=== PATIENT | female | born 1990 | race Caucasian/White ===

== ENCOUNTER → 2017-03-09 | Outpatient (CLI) | payer OTHER ==
[~2017-03-09] MED LIST: AMT25 PO; GABA-112 PO; METH4PAK PO; OMEP20TA PO
[2017-03-09 18:32] LABS: LYME DISEASE AB IGG NEG (NEG); LYME DISEASE AB IGM NEG (NEG)
== END | disposition home or self-care (01) ==
LOC: C.LAB 14:34
PROVIDERS: ATTEND Physician Assistant
DX: M25.50 Pain in unspecified joint (principal)

== ENCOUNTER 2017-03-29 19:04 | Emergency (ER) | payer OTHER ==
[~2017-03-29] VITALS: Ht 162.6 cm; Wt 53.8 kg
[~2017-03-29 19:04] MED LIST changes: -AMT25 PO; -METH4PAK PO; -OMEP20TA PO
[2017-03-29 19:07] VITALS: TEMP 36.6; Ht 162.6 cm; Wt 53.8 kg
[2017-03-29] MEDS ORDERED: SODIUM CHLORIDE 0.9% 1000ML 1,000 ML IV STA ×2 (19:19→20:19)
--- NOTE | 2017-03-29 19:24 | EMERGENCY ROOM VISIT NOTE ---
History Report prepared by Armando: Chuck Garner Under the Supervision of: Dr. Issa Obregon M.D. First contact with patient: 19:10 Chief Complaint: DIZZY Stated Complaint: DIZZY,NAUSEA X 1 WK History of Present Illness The patient is a 27 year old female with a history of migraines who presents to the Emergency Room with complaints of persistent dizziness that started around 6 days ago. She says that she had a migraine 7 days ago, which resolved, but ever since then she has felt confused, almost like she is "drunk" and "can't think". The patient states that she has had persistent dizziness. She adds that she started having nausea as well, and she almost can't drive now. She states that she has been taking her Amitriptyline at night. The patient says that she currently feels dizzy, nauseous, and unable to think. She denies any loss of consciousness, fevers, rashes, headaches, or neck stiffness. The patient also denies any major trauma, falls, or recent camping. She notes that she had a tick bite at the end of last month, and was treated with doxycycline for 10 days. She adds that she has a syrinx in her spinal cord, but that is stable. She follows up with neurology regularly. The patient has had multiple brain MRI' s in the past. Source of History: patient Onset: 6 days ago Position: other (global - dizziness) Timing: other (persistent) Associated Symptoms: + nausea, No LOC, No fevers, No headache, No rash Note: Associated symptoms: Unable to think, confused. Denies neck stiffness. Review of Systems See HPI for pertinent positives & negatives. A total of 10 systems reviewed and were otherwise negative. Past Medical & Surgical Medical Problems: (1) Cervicalgia (2) Hx of wisdom tooth extraction (3) Hydromyelia (4) Migraine (5) Pain In Thoracic Spine (6) Sore throat (7) Sore throat (8) Syrinx of spinal cord Surgical Problems: (1) History of stomach ulcers Family History Cancer Gallbladder disease Heart disease Social History Smoking Status: Never Smoker Alcohol Use: occasionally Drug Use: none Marital Status: single Housing Status: lives with family, lives with significant other Occupation Status: employed Current/Historical Medications Scheduled Methylprednisolone (Medrol Dosepak), 1 PKT PO UD Omeprazole (Omeprazole), 1 TAB PO BID Scheduled PRN Amitriptyline HCl (Amitriptyline HCl), 25 MG PO HS PRN for Sleep Gabapentin (Neurontin), 100 MG PO DAILY PRN for Pain Allergies Coded Allergies: No Known Allergies (Unverified , 03/27/16) Physical Exam Vital Signs Date Time Temp Pulse Resp B/P (MAP) Pulse Ox O2 Delivery O2 Flow Rate FiO2 03/29/17 22:32 81 18 107/66 99 03/29/17 20:55 92 18 105/54 98 Room Air 03/29/17 20:16 87 03/29/17 19:07 36.6 93 16 122/82 98 Room Air Physical Exam GENERAL: Patient is well appearing and in mild distress. HEAD: No acute trauma, normocephalic atraumatic ENT: Mucous membranes moist, no nasal congestion. EYES: Equal/Reactive Bilaterally, No scleral icterus, Normal ROM NECK: No nuchal rigidity, no meningismus, trachea is midline, full ROM LUNGS: No dyspnea. Clear to auscultation and equal bilaterally. No wheeze, no rhonchi. HEART: Regular rate and rhythm. No murmurs, rubs, gallops appreciated. ABDOMEN: Soft, nontender, bowel sounds positive, no masses appreciated, no peritonitis. BACK: No midline tenderness, no CVA tenderness EXTREMITIES: Normal motion all extremities, no cyanosis, no edema. NEUROLOGIC: Awake, Alert, Oriented, no acute motor or sensory deficits, no focal weakness, cranial nerves grossly intact. SKIN: No rash, no jaundice, no diaphoresis. Medical Decision & Procedures Laboratory Results 03/29/17 19:30 Red Blood Count 4.79, Mean Corpuscular Volume 87.9, Mean Corpuscular Hemoglobin 28.2, Mean Corpuscular Hemoglobin Concent 32.1, Mean Platelet Volume 9.5, Neutrophils (%) (Auto) 46.6, Lymphocytes (%) (Auto) 40.9, Monocytes (%) (Auto) 8.0, Eosinophils (%) (Auto) 4.0, Basophils (%) (Auto) 0.3, Neutrophils # (Auto) 4.00, Lymphocytes # (Auto) 3.52, Monocytes # (Auto) 0.69, Eosinophils # (Auto) 0.34, Basophils # (Auto) 0.03 03/29/17 19:30 Test 03/29/17 19:30 White Blood Count 8.60 K/uL (4.8-10.8) Red Blood Count 4.79 M/uL (4.2-5.4) Hemoglobin 13.5 g/dL (12.0-16.0) Hematocrit 42.1 % (37-47) Mean Corpuscular Volume 87.9 fL (80-100) Mean Corpuscular Hemoglobin 28.2 pg (25-34) Mean Corpuscular Hemoglobin Concent 32.1 g/dl (32-36) Platelet Count 334 K/uL (130-400) Mean Platelet Volume 9.5 fL (7.4-10.4) Neutrophils (%) (Auto) 46.6 % Lymphocytes (%) (Auto) 40.9 % Monocytes (%) (Auto) 8.0 % Eosinophils (%) (Auto) 4.0 % Basophils (%) (Auto) 0.3 % Neutrophils # (Auto) 4.00 K/uL (1.4-6.5) Lymphocytes # (Auto) 3.52 K/uL (1.2-3.4) Monocytes # (Auto) 0.69 K/uL (0.11-0.59) Eosinophils # (Auto) 0.34 K/uL (0-0.5) Basophils # (Auto) 0.03 K/uL (0-0.2) RDW Standard Deviation 43.0 fL (36.4-46.3) RDW Coefficient of Variation 13.3 % (11.5-14.5) Immature Granulocyte % (Auto) 0.2 % Immature Granulocyte # (Auto) 0.02 K/uL (0.00-0.02) Anion Gap 5.0 mmol/L (3-11) Est Creatinine Clear Calc Drug Dose 81.6 ml/min Estimated GFR () 104.4 Estimated GFR (Non- 90.0 BUN/Creatinine Ratio 12.8 (10-20) Calcium Level 8.9 mg/dl (8.5-10.1) Magnesium Level 2.3 mg/dl (1.8-2.4) Troponin I < 0.015 ng/ml (0-0.045) Thyroid Stimulating Hormone (TSH) 2.250 uIu/ml (0.300-4.500) Human Chorionic Gonadotropin, Qual NEG (NEG) Lyme Disease IgG Antibody NEG (NEG) Lyme Disease IgM Antibody NEG (NEG) Monoscreen NEG (NEG) Laboratory results as reviewed by me. Medications Administered Medications (Trade) Dose Ordered Sig/Ambika Route Start Time Stop Time Status Last Admin Dose Admin Sodium Chloride 1,000 ml @ 999 mls/hr Q1H1M STAT IV 03/29/17 19:19 03/29/17 20:19 DC 03/29/17 19:34 999 MLS/HR Ketorolac Tromethamine (Toradol Inj) 30 mg NOW STAT IV 03/29/17 19:26 03/29/17 19:27 DC 03/29/17 19:34 30 MG Diphenhydramine HCl (Benadryl Inj) 25 mg NOW STAT IV 03/29/17 19:26 03/29/17 19:27 DC 03/29/17 19:35 25 MG Ondansetron HCl (Zofran Inj) 4 mg NOW STAT IV 03/29/17 19:26 03/29/17 19:27 DC 03/29/17 19:35 4 MG Sodium Chloride 1,000 ml @ 999 mls/hr Q1H1M STAT IV 03/29/17 20:19 03/29/17 21:19 DC 03/29/17 20:19 999 MLS/HR Dexamethasone Sodium Phosphate (Decadron Inj) 10 mg NOW STAT IV 03/29/17 22:10 03/29/17 22:11 DC 03/29/17 22:16 10 MG ECG Indication: nausea Rate (beats per minute): 78 Rhythm: sinus rhythm Findings: other (abnormal P waves, shortened MS) Comparison ECG Date: no prior available ED Course 1913: The patient was evaluated in room C2B. A complete history and physical exam was performed. 1918: Ordered NSS 1000 ml @ 999 mls/hr IV. 1925: Ordered Zofran Inj 4 mg IV, Benadryl Inj 25 mg IV, Toradol Inj 30 mg IV. 2006: I discussed the patient with Dr. Edgar Mayfield cardiology - he says that depending on the severity of the patient's symptoms, she can be monitored for 24 hours, but workup can be completed as an outpatient. 2018: I reevaluated the patient and she says that she still feels very dizzy. 2019: Ordered NSS 1000 ml @ 999 mls/hr IV. 2114: I reevaluated the patient and she is still a little dizzy. 2137: I discussed the patient with Dr. Jacey FERRER neurology. 2209: Ordered Decadron Inj 10 mg IV. 2219: I reevaluated the patient and he is resting. The patient verbally expressed understanding and agreement of the treatment plan. The patient will be discharged. Medical Decision Differential diagnoses include Benign positional vertigo, Dehydration, Hypovolemia, Anemia, Tumor, Infection, Hypoglycemia, Electrolyte abnormalities, Cardiac sources, Intracerebral event, Toxicologic, Neurologic, as well as others were entertained. Medication Reconciliation: I attest that I have personally reviewed the patient 's current medication list. Blood pressure screening: Patient was found to have normal blood pressure on screening and does not require follow-up. 27 yr old female with dizziness and nausea for last week. No significant other symptoms. Started post Migraine one week ago. Already with several MRIs in past with what appears to be similar symptoms. Labs look good (apparently issue in lab with machine thus prolonged stay). EKG with varying from NSR to ectopic atrial pacemaker. Not consistent with her symptoms. Multiple meds given. Reviewed with her neurologist who agreed with trying steroid as outpatient in case this is carryover from other migraine. Reviewed at length symptoms requiring return. PPI as NSAIDs and steroids and notes previous issue with possible gastritis/ulcer. Consults Time Called: 2003 Consulting Physician: Dr. Edgar Mayfield cardiology Returned Call: 2006 I discussed the patient with Dr. Edgar Mayfield cardiology - he says that depending on the severity of the patient's symptoms, she can be monitored for 24 hours, but workup can be completed as an outpatient. Additional Consults: Time Called: 2134 Consulted Physician: Dr. Jacey FERRER neurology Returned Call: 2137 Additional Comments: I discussed the patient with Dr. Jacey FERRER neurology. Impression Primary Impression: Dizziness Additional Impressions: Nausea Ectopic atrial pacemaker Scribe Attestation The scribe's documentation has been prepared under my direction and personally reviewed by me in its entirety. I confirm that the note above accurately reflects all work, treatment, procedures, and medical decision making performed by me. Departure Information Dispostion Home / Self-Care Prescriptions Omeprazole (OMEPRAZOLE) 20 Mg Tab 1 TAB PO BID, #30 TAB 1 Refill Take twice daily for 10 days, then once daily. Prov: Issa Obregon M.D. 03/29/17 Methylprednisolone (MEDROL DOSEPAK) 4 Mg Tom 1 PKT PO UD for 6 Days, #1 PKT Prov: Issa Obregon M.D. 03/29/17 Referrals Cari Lindsey D.O. (PCP) Sean Hernández D.O. Patient Instructions ED Dizziness [facility], [facility] Additional Instructions Please follow up with your neurologist for further evaluation and treatment. Your EKG shows evidence of an ectopic atrial pacemaker. This converts to normal area periodically before switching back. It is felt it is unlikely this is the cause of your symptoms. Return if having tachycardia, palpitations, syncope, chest pain, difficulty breathing or other concerns. You should follow up with a cooper apprentice for further evaluation of this. Problem Qualifiers
[2017-03-29] MEDS ORDERED: KETOROLAC TROMETHAMINE 30 MG/ML VIAL IV STA (19:26)
[2017-03-29] MEDS ORDERED: DiphenhydrAMINE HCL 50 MG/ML VIAL IV STA (19:26)
[2017-03-29] MEDS ORDERED: ONDANSETRON INJ 2 MG/ML 2 ML VIAL IV STA (19:26)
[2017-03-29 19:38] LABS: BASO % 0.3 %; BASO ABS # 0.03 K/uL (0-0.2); COMPLETE YES; HEMATOCRIT 42.1 % (37-47); IG% 0.2 %; LYMPH % 40.9 %; LYMPH ABS # 3.52 K/uL (1.2-3.4); MEAN CELL VOLUME 87.9 fL (80-100); MEAN CORPUSCULAR HEMOGLOBIN 28.2 pg (25-34); MEAN CORPUSCULAR HGB CONC 32.1 g/dl (32-36); MEAN PLATELET VOLUME 9.5 fL (7.4-10.4); NEUT % 46.6 %; PLATELET COUNT 334 K/uL (130-400); RED BLOOD COUNT 4.79 M/uL (4.2-5.4)
[2017-03-29] MEDS ORDERED: AMT25 PO (19:40)
[2017-03-29 20:04] LABS: POTASSIUM 4.2 mmol/L (3.5-5.1)
[2017-03-29 20:11] LABS: PREG INTERNAL NEGATIVE QC NEG CLEAR BACKGROUND; PREG INTERNAL POSITIVE QC POS CONTROL LINE
[2017-03-29 20:12] LABS: BUN/CREATININE RATIO 12.8 (10-20); CALCIUM 8.9 mg/dl (8.5-10.1); CREATININE 0.88 mg/dl (0.60-1.20)
[2017-03-29 20:35] LABS: LYME DISEASE AB IGG NEG (NEG); LYME DISEASE AB IGM NEG (NEG)
[2017-03-29] MEDS ORDERED: DEXAMETHASONE SOD INJ 4 MG/ML VIAL IV STA (22:10)
[2017-03-29] MEDS ORDERED: METH4PAK PO (22:12)
[2017-03-29] MEDS ORDERED: OMEP20TA PO (22:12)
[2017-03-29 22:15] LABS: MAGNESIUM 2.3 mg/dl (1.8-2.4)
[2017-03-29 22:32] VITALS: BP 107/66; PULSE 81; O2SAT 99
== END 2017-03-29 22:32 | disposition home or self-care (01) ==
LOC: C.EDB 19:06 → C.EDC 22:32
DX: R42 Dizziness and giddiness (principal); R11.0 Nausea; I49.8 Other specified cardiac arrhythmias; G95.0 Syringomyelia and syringobulbia; Z79.899 Other long term (current) drug therapy; Z82.49 Family history of ischemic heart disease and other diseases of the circulatory system; Z83.79 Family history of other diseases of the digestive system; Z95.0 Presence of cardiac pacemaker

== ENCOUNTER → 2017-04-09 | Outpatient (CLI) | payer OTHER ==
[~2017-04-09] MED LIST changes: +AMT25 PO; +OMEP20TA PO
--- NOTE | 2017-04-09 15:21 | ECHOCARDIOGRAM REPORT ---
*NOTICE TO RECEIVING DEMOCRAT AGENCY This information is strictly Confidential and protected under [place] law. [place] law prohibits you from making any further disclosure of this information unless further disclosure is expressly permitted by the written consent of the person to whom it pertains or is authorized by law. A general authorization for the release of medical or other information is not sufficient for this purpose. Hospital accepts no responsibility if the information is made available to any other person, INCLUDING THE PATIENT. Interpretation Summary * Name: TYSHAWN DEGROOT Study Date: 04/09/2017 12:52 PM BP: 101/70 mmHg * Patient Location: [facility] HR: 82 * : 1990 (M/d/yyyy) Gender: Female Height: 64 in * Age: 27 yrs Ethnicity: [place] Weight: 116 lb * Ordering Physician: Apolinar Campbell * Referring Physician: Apolinar Campbell * Performed By: Nohemy Davis RDCS * * Reason For Study: DIZZINESS, ECTOPIC ATRIAL PACEMAKER * BSA: 1.6 m2 * This was essentially a normal study. Procedure Details * A complete two-dimensional transthoracic echocardiogram was performed (2D, M-mode, Doppler and color flow Doppler). Left Ventricle * The left ventricle is normal in size. * There is normal left ventricular wall thickness. * Ejection Fraction = 55-60%. * Left ventricular systolic function is normal. * The left ventricular wall motion is normal. Right Ventricle * The right ventricle is normal size. * The right ventricular systolic function is normal. Atria * The left atrial size is normal. * Right atrial size is normal. * The interatrial septum is intact with no evidence for an atrial septal defect. Mitral Valve * The mitral valve is normal in structure and function. Tricuspid Valve * The tricuspid valve is normal in structure and function. Aortic Valve * The aortic valve is normal in structure and function. Pulmonic Valve * The pulmonic valve is not well seen, but is grossly normal. Great Vessels * The aortic root and proximal ascending aorta are normal sized. Pericardium/Pleural * There is no pericardial effusion. MMode 2D Measurements and Calculations IVSd 0.51 cm IVSs 0.87 cm LVIDd 4.1 cm LVIDs 2.9 cm LVPWd 0.78 cm LVPWs 0.97 cm IVS/LVPW 0.65 FS 29.4 % EDV(Teich) 75.1 ml ESV(Teich) 32.5 ml EF(Teich) 56.7 % EDV(cubed) 70.0 ml ESV(cubed) 24.7 ml EF(cubed) 64.8 % % IVS thick 71.3 % % LVPW thick 25.0 % LV mass(C)d 73.6 grams LV mass(C)dI 47.4 grams/m\S\2 LV mass(C)s 69.1 grams LV mass(C)sI 44.5 grams/m\S\2 SV(Teich) 42.6 ml SI(Teich) 27.5 ml/m\S\2 SV(cubed) 45.3 ml SI(cubed) 29.2 ml/m\S\2 Ao root diam 2.4 cm Ao root area 4.3 cm\S\2 LA dimension 2.5 cm LA/Ao 1.1 LVAd ap4 25.4 cm\S\2 LVLd ap4 8.1 cm EDV(MOD-sp4) 67.9 ml EDV(sp4-el) 68.0 ml LVAs ap4 15.6 cm\S\2 LVLs ap4 7.1 cm ESV(MOD-sp4) 29.4 ml ESV(sp4-el) 29.1 ml EF(MOD-sp4) 56.8 % EF(sp4-el) 57.2 % LVAd ap2 24.6 cm\S\2 LVLd ap2 8.3 cm EDV(MOD-sp2) 62.5 ml EDV(sp2-el) 61.8 ml LVAs ap2 14.5 cm\S\2 LVLs ap2 6.5 cm ESV(MOD-sp2) 27.7 ml ESV(sp2-el) 27.2 ml EF(MOD-sp2) 55.7 % EF(sp2-el) 56.1 % LVLd %diff 2.7 % EDV(MOD-bp) 66.0 ml LVLs %diff -9.30 % ESV(MOD-bp) 29.3 ml EF(MOD-bp) 55.6 % SV(MOD-sp4) 38.6 ml SI(MOD-sp4) 24.9 ml/m\S\2 SV(MOD-sp2) 34.8 ml SI(MOD-sp2) 22.4 ml/m\S\2 SV(MOD-bp) 36.7 ml SI(MOD-bp) 23.7 ml/m\S\2 SV(sp4-el) 38.9 ml SI(sp4-el) 25.1 ml/m\S\2 SV(sp2-el) 34.7 ml SI(sp2-el) 22.4 ml/m\S\2 Doppler Measurements and Calculations MV E max jessica 83.4 cm/sec MV A max jessica 46.1 cm/sec MV E/A 1.8 MV dec time 0.19 sec Ao V2 max 146.0 cm/sec Ao max PG 8.5 mmHg Ao max PG (full) 4.8 mmHg LV V1 max PG 3.8 mmHg LV V1 max 97.0 cm/sec TR max jessica 217.1 cm/sec
== END | disposition home or self-care (01) ==
LOC: C.CPL 12:46
PROVIDERS: ATTEND Internal Medicine Interventional Cardiology
DX: R42 Dizziness and giddiness (principal); I49.1 Atrial premature depolarization

== ENCOUNTER 2017-09-17 00:47 | Emergency (ER) | payer OTHER ==
[~2017-09-17] VITALS: Ht 162.6 cm; Wt 52.3 kg
[2017-09-17 00:48] VITALS: TEMP 36.4; Ht 162.6 cm; Wt 52.3 kg
[2017-09-17] MEDS ORDERED: KETOROLAC TROMETHAMINE 15 MG/ML VIAL IV ONE (01:30)
[2017-09-17] MEDS ORDERED: DEXAMETHASONE INJ 10 MG in SYRINGE 0 ML IV ONE (01:30)
[2017-09-17] MEDS ORDERED: DEXAMETHASONE **PF** INJ 10 MG/ML VIAL ONE (01:40)
[2017-09-17] MEDS ORDERED: KETOROLAC TROMETHAMINE 30 MG/ML VIAL ONE (01:40)
[2017-09-17 01:48] LABS: BASO % 0.2 %; BASO ABS # 0.02 K/uL (0-0.2); EOS % 2.6 %; EOS ABS # 0.23 K/uL (0-0.5); HEMATOCRIT 36.4 % (37-47); HEMOGLOBIN 12.3 g/dL (12.0-16.0); IG# 0.02 K/uL (0.00-0.02); LYMPH % 36.5 %; LYMPH ABS # 3.19 K/uL (1.2-3.4); MEAN CELL VOLUME 83.7 fL (80-100); MEAN CORPUSCULAR HEMOGLOBIN 28.3 pg (25-34); MEAN CORPUSCULAR HGB CONC 33.8 g/dl (32-36); MEAN PLATELET VOLUME 9.9 fL (7.4-10.4); MONO % 7.3 %; MONO ABS # 0.64 K/uL (0.11-0.59); NEUT % 53.2 %; NEUT ABS # 4.63 K/uL (1.4-6.5); PLATELET COUNT 288 K/uL (130-400); RED CELL DISTRIBUTION WIDTH CV 12.9 % (11.5-14.5); RED CELL DISTRIBUTION WIDTH SD 39.1 fL (36.4-46.3); WHITE BLOOD COUNT 8.73 K/uL (4.8-10.8)
[2017-09-17] MEDS ORDERED: MELO7.5T5 PO (01:48)
[2017-09-17 02:06] LABS: ALBUMIN 3.9 gm/dl (3.4-5.0); CALCIUM 9.2 mg/dl (8.5-10.1); CREATININE 0.72 mg/dl (0.60-1.20); POTASSIUM 3.8 mmol/L (3.5-5.1)
[2017-09-17 02:09] LABS: TOTAL PROTEIN 7.5 gm/dl (6.4-8.2)
[2017-09-17 03:49] VITALS: BP 91/50; PULSE 78; O2SAT 99
[2017-09-17] MEDS ORDERED: PRED20TA2 PO (03:56)
--- NOTE | 2017-09-17 07:08 | DIAGNOSTIC IMAGING REPORT ---
LUMBAR SPINE W/O CONTRAST CLINICAL HISTORY: 27 years-old Female with Right leg and pelvic numbness. Acute right leg and pelvic numbness. Pain radiates into the bilateral lower legs, right greater than left. No acute injury or history of cancer. COMPARISON: Lumbar spine MRI 03/27/2016 TECHNIQUE: Multiplanar, multi sequence MRI of the lumbar spine was performed without intravenous contrast. FINDINGS: Large [id number] cut off operator scorer localizer images demonstrate no gross abnormality. Linear 2.2 x 0.2 cm T2 hyperintense focus involves the distal thoracic spinal cord at the level of T11-T12 nicely seen on image 9 series 3 which appears new from prior exam. No mass of the cord is identified. Conus medullaris terminates at the L1-L2 level. There are T2 hyperintense round foci seen involving the upper sacrum suggesting perineural root sleeve cysts measuring up to 9 mm on the left at S2-S3. No suspicious mass lesions seen within this distribution. No fracture or focal bone marrow edema. T12-L1: No central canal or neural foraminal stenosis. L1-L2: No central canal or neural foraminal stenosis. L2-L3: No central canal or neural foraminal stenosis. L3-L4: No central canal or neural foraminal stenosis. L4-L5: No central canal or neural foraminal stenosis. Mild ligamentum flavum thickening. L5-S1: Mild ligamentum flavum thickening with broad-based posterior disc bulge flattening the ventral thecal sac. No significant central canal narrowing. There is mild inferior foraminal stenosis bilaterally. No significant change from comparison. IMPRESSION: 1. At L5-S1 there is mild ligamentum flavum thickening with broad-based posterior disc bulge which flattens the ventral thecal sac without significant significant central canal narrowing. There does however cause mild inferior foraminal stenosis bilaterally. 2. Small linear 2.2 x 0.2 cm hyperintense focus of the distal thoracic spinal cord at the T11-T12 level may reflect a small syrinx. No associated mass of the spinal cord identified. 3. 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 The above report was generated using voice recognition software. It may contain grammatical, syntax or spelling errors. Electronically signed by: Ulises Garcia M.D. 09/17/2017 7:06 AM Dictated Date/Time: 09/17/2017 6:53 AM
--- NOTE | 2017-09-18 05:36 | EMERGENCY ROOM VISIT NOTE ---
History First contact with patient: 00:54 Chief Complaint: BILATERAL LEG WEAKNESS Stated Complaint: BILATERAL LEG NUMBNESS/PELVIS History of Present Illness The patient is a 27 year old female who presents to the Emergency Room with complaints of intermittent numbness of her bilateral legs and pelvis. The patient states that she has had symptoms like this off and on for the past few years. She has had previous MRIs primarily of her thoracic and lumbar spine. She does follow with neurology and is taking gabapentin for some of her symptoms. She states that her discomfort has changed noticeably over the past few days. As she lays flat she states that her lower pelvis area feels numb. She is also complaining of numbness into the lateral aspect of her right foot. She has intermittently had this in the past, but it always resolves after a few minutes. She states her symptoms are much more persistent at this time. She does not report injury or trauma. No fevers or chills. She is able to use the bathroom as normal. She is currently doing physical therapy, however this does not seem to have improved her symptoms. She rates her current discomfort a 4/10 , stating that the numbness bothers her the most. Review of Systems More than 10 systems were reviewed and otherwise negative with the exception of history of present illness. Past Medical/Surgical History Medical Problems: (1) Cervicalgia (2) Hx of wisdom tooth extraction (3) Hydromyelia (4) Migraine (5) Pain In Thoracic Spine (6) Sore throat (7) Sore throat (8) Syrinx of spinal cord Surgical Problems: (1) History of stomach ulcers Family History Cancer Gallbladder disease Heart disease Social History Smoking Status: Never Smoker Alcohol Use: occasionally Drug Use: none Marital Status: single Housing Status: lives with family, lives with significant other Occupation Status: employed Current/Historical Medications Scheduled Meloxicam (Mobic), 7.5 MG PO QAM Prednisone (Prednisone Tab), 2 TAB PO DAILY Scheduled PRN Gabapentin (Neurontin), 100 MG PO TID PRN for Pain Physical Exam Vital Signs Date Time Temp Pulse Resp B/P (MAP) Pulse Ox O2 Delivery O2 Flow Rate FiO2 09/17/17 03:49 78 18 91/50 99 Room Air 09/17/17 01:49 71 18 105/64 96 Room Air 09/17/17 00:48 36.4 97 18 131/89 100 Room Air Physical Exam VITALS: Vitals are noted on the nurse's note and reviewed by myself. Vital signs stable. GENERAL: Well-developed, well-nourished, white female, who is in no acute distress and resting comfortably. Patient is cooperative with the examination. NECK: Supple without nuchal rigidity. No lymphadenopathy. No thyromegaly. Cervical spine is nontender. HEART: Regular rate and rhythm without murmurs gallops or rubs. LUNGS: Clear to auscultation bilaterally without wheezes, rales or rhonchi. No retractions or accessory muscle use. ABDOMEN: Positive normal bowel sounds x 4. Soft, nontender, without masses or organomegaly. No guarding or rebound tenderness. MUSCULOSKELETAL: No muscle atrophy, erythema, or edema noted. Tenderness is appreciated through the mid and lower lumbar spine. Positive right greater than left SI joint tenderness. Sensorium is reportedly diminished in the right leg laterally than compared to the left leg. No obvious saddle paresthesias. No distinct straight leg raise. NEURO: Patient was alert and oriented to person place and time. CN II through XII grossly intact. No focal neurological deficits. Deep tendon reflexes 2+ throughout. SKIN: The skin was without rashes, erythema, edema, or bruising. Capillary refill less than 2 seconds. Medical Decision & Procedures ER Provider Diagnostic Interpretation: LUMBAR SPINE W/O CONTRAST CLINICAL HISTORY: 27 years-old Female with Right leg and pelvic numbness. Acute right leg and pelvic numbness. Pain radiates into the bilateral lower legs, right greater than left. No acute injury or history of cancer. COMPARISON: Lumbar spine MRI 03/27/2016 TECHNIQUE: Multiplanar, multi sequence MRI of the lumbar spine was performed without intravenous contrast. FINDINGS: Large [id number]-[id number] senior oracle dba localizer images demonstrate no gross abnormality. Linear 2.2 x 0.2 cm T2 hyperintense focus involves the distal thoracic spinal cord at the level of T11-T12 nicely seen on image 9 series 3 which appears new from prior exam. No mass of the cord is identified. Conus medullaris terminates at the L1-L2 level. There are T2 hyperintense round foci seen involving the upper sacrum suggesting perineural root sleeve cysts measuring up to 9 mm on the left at S2-S3. No suspicious mass lesions seen within this distribution. No fracture or focal bone marrow edema. T12-L1: No central canal or neural foraminal stenosis. L1-L2: No central canal or neural foraminal stenosis. L2-L3: No central canal or neural foraminal stenosis. L3-L4: No central canal or neural foraminal stenosis. L4-L5: No central canal or neural foraminal stenosis. Mild ligamentum flavum thickening. L5-S1: Mild ligamentum flavum thickening with broad-based posterior disc bulge flattening the ventral thecal sac. No significant central canal narrowing. There is mild inferior foraminal stenosis bilaterally. No significant change from comparison. IMPRESSION: 1. At L5-S1 there is mild ligamentum flavum thickening with broad-based posterior disc bulge which flattens the ventral thecal sac without significant significant central canal narrowing. There does however cause mild inferior foraminal stenosis bilaterally. 2. Small linear 2.2 x 0.2 cm hyperintense focus of the distal thoracic spinal cord at the T11-T12 level may reflect a small syrinx. No associated mass of the spinal cord identified. 3. 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 Laboratory Results 09/17/17 01:35 Red Blood Count 4.35, Mean Corpuscular Volume 83.7, Mean Corpuscular Hemoglobin 28.3, Mean Corpuscular Hemoglobin Concent 33.8, Mean Platelet Volume 9.9, Neutrophils (%) (Auto) 53.2, Lymphocytes (%) (Auto) 36.5, Monocytes (%) (Auto) 7.3, Eosinophils (%) (Auto) 2.6, Basophils (%) (Auto) 0.2, Neutrophils # (Auto) 4.63, Lymphocytes # (Auto) 3.19, Monocytes # (Auto) 0.64, Eosinophils # (Auto) 0.23, Basophils # (Auto) 0.02 09/17/17 01:35 Test 09/17/17 01:35 White Blood Count 8.73 K/uL (4.8-10.8) Red Blood Count 4.35 M/uL (4.2-5.4) Hemoglobin 12.3 g/dL (12.0-16.0) Hematocrit 36.4 % (37-47) Mean Corpuscular Volume 83.7 fL (80-100) Mean Corpuscular Hemoglobin 28.3 pg (25-34) Mean Corpuscular Hemoglobin Concent 33.8 g/dl (32-36) Platelet Count 288 K/uL (130-400) Mean Platelet Volume 9.9 fL (7.4-10.4) Neutrophils (%) (Auto) 53.2 % Lymphocytes (%) (Auto) 36.5 % Monocytes (%) (Auto) 7.3 % Eosinophils (%) (Auto) 2.6 % Basophils (%) (Auto) 0.2 % Neutrophils # (Auto) 4.63 K/uL (1.4-6.5) Lymphocytes # (Auto) 3.19 K/uL (1.2-3.4) Monocytes # (Auto) 0.64 K/uL (0.11-0.59) Eosinophils # (Auto) 0.23 K/uL (0-0.5) Basophils # (Auto) 0.02 K/uL (0-0.2) RDW Standard Deviation 39.1 fL (36.4-46.3) RDW Coefficient of Variation 12.9 % (11.5-14.5) Immature Granulocyte % (Auto) 0.2 % Immature Granulocyte # (Auto) 0.02 K/uL (0.00-0.02) Anion Gap 9.0 mmol/L (3-11) Est Creatinine Clear Calc Drug Dose 96.9 ml/min Estimated GFR () 133.0 Estimated GFR (Non- 114.8 BUN/Creatinine Ratio 10.8 (10-20) Calcium Level 9.2 mg/dl (8.5-10.1) Total Bilirubin 0.3 mg/dl (0.2-1) Aspartate Amino Transf (AST/SGOT) 14 U/L (15-37) Alanine Aminotransferase (ALT/SGPT) 17 U/L (12-78) Alkaline Phosphatase 43 U/L (45-117) Total Protein 7.5 gm/dl (6.4-8.2) Albumin 3.9 gm/dl (3.4-5.0) Globulin 3.6 gm/dl (2.5-4.0) Albumin/Globulin Ratio 1.1 (0.9-2) Medications Administered Medications (Trade) Dose Ordered Sig/Ambika Route Start Time Stop Time Status Last Admin Dose Admin Ketorolac Tromethamine (Toradol Inj) 30 mg STK-MED ONCE .ROUTE 09/17/17 01:40 09/17/17 01:41 DC 09/17/17 01:42 15 MG Dexamethasone Sodium Phosphate (Dexamethasone Inj Pf) 10 mg STK-MED ONCE .ROUTE 09/17/17 01:40 09/17/17 01:41 DC 09/17/17 01:42 10 MG ED Course Physical exam and history were performed. Nursing notes, EMR, and Medication List were personally reviewed. Patient appears to have numbness weakness into her lower legs. There is no injury or trauma. The patient does work here at the hospital, and has had abnormal imaging in the past. IV access was established and labs were obtained. The patient was medicated as above. I have concern as her symptoms are progressive compared to previous, and MRI is felt to be necessary. The patient's blood work is as above and was reviewed. She does not have a significantly elevated white blood cell count, gross anemia, bandemia, or significant electrolyte imbalance. The patient's MRI is as above. The case was discussed with my attending physician, and the patient was reevaluated. Overall the patient appears well for discharge home. She does not appear to have an acute surgical process. I do have concern based on her findings, and we had a lengthy discussion regarding this. I discussed her preference of care , and she would like to follow with Dr. Rod for orthopedic spine. The patient will be referred to their service. She was given additional instructions as below, and did report feeling much better after medication. She was certainly invited back to the ER with any new, worsening, or concerning symptoms. The chart was completed utilizing [email or web address] Speech Voice Recognition Software. Grammatical errors, random word insertions, pronoun errors, and incomplete sentences are an occasional consequence of this system due to software limitations, ambient noise, and hardware issues. Any formal questions or concerns about the content, text, or information contained within the body of this dictation should be directly addressed to the provider for clarification. . Medical Decision Differential diagnosis: Etiologies such as musculoskeletal, disc herniation, fracture, aortic disease, metastatic disease, cord compression, discitis, infection, renal colic, gastrointestinal, acute exacerbation of chronic back pain, sciatica, cauda equina, as well as others were entertained. Impression Primary Impression: Leg weakness Additional Impression: Abnormal MRI Departure Information Dispostion Home / Self-Care Condition GOOD Prescriptions Prednisone (Prednisone Tab) 20 Mg Tab 2 TAB PO DAILY for 4 Days, #8 TAB Prov: Paul Hoyt PA-C 09/17/17 Referrals Flavio Rod, DO Forms HOME CARE DOCUMENTATION FORM, Work Instructions, Additional Instructions: Patient was seen and evaluated today in the emergency department fo medical care. Return to work on 09/21/2017. Please excuse. IMPORTANT VISIT INFORMATION Patient Instructions My [facility] Additional Instructions You were seen and evaluated today on an emergency basis only. This is not a substitute for, or an effort to provide, complete comprehensive medical care. It is not possible to recognize and treat all injuries or illnesses in a single emergency department visit. For this reason it is recommended that you followup with [facility], Dr. Rod' s office, for ongoing care and evaluation. Call the office at 8 AM to make an appointment. Let them know you were seen in the ER. Continue Mobic as prescribed. Begin prednisone 40 mg daily for the next 4 days. You are welcome to return to the emergency department anytime with new, worsening, or concerning symptoms. Work Instructions Additional Work Instructions: Patient was seen and evaluated today in the emergency department for medical care. Return to work on 09/21/2017. Please excuse. Problem Qualifiers
== END 2017-09-17 04:02 | disposition home or self-care (01) ==
LOC: C.EDB 00:48 → C.EDA 04:02
DX: R29.898 Other symptoms and signs involving the musculoskeletal system (principal); R93.8 Abnormal findings on diagnostic imaging of other specified body structures; Z98.818 Other dental procedure status

== ENCOUNTER → 2017-09-21 | Outpatient (CLI) | payer OTHER ==
[~2017-09-21] MED LIST changes: +MELO7.5T5 PO; +PRED20TA2 PO
--- NOTE | 2017-09-22 07:48 | DIAGNOSTIC IMAGING REPORT ---
THORACIC SPINE MRI HISTORY: SYRINGOMYELIA TECHNIQUE: Multiplanar multisequence MRI of the thoracic spine was performed without the use of contrast. COMPARISON: Thoracic spine MRI 03/19/2016. FINDINGS: No fractures or subluxation within the thoracic spine. There is a 1 cm hemangioma at T11, unchanged. Mild disc space narrowing within the lower thoracic spine is again noted. No significant central canal or neural foraminal narrowing. The conus terminates at the L1 level. Paraspinal soft tissues are unremarkable. There is again noted mild dilatation of the central canal involving the lower cervical cord at the C6-C7 levels and throughout the majority of the thoracic cord. This measures a maximum diameter of 2 mm. No areas of cord signal abnormality. IMPRESSION: 1. No significant change in the mild hydromyelia involving the lower cervical and majority of the thoracic cord. 2. Mild disc space narrowing within the lower thoracic spine. No significant central canal or neural foraminal narrowing. Electronically signed by: Donaldo Trivedi M.D. 09/22/2017 7:46 AM Dictated Date/Time: 09/22/2017 7:33 AM
== END | disposition home or self-care (01) ==
LOC: C.MRI 22:21
PROVIDERS: ATTEND Physician Assistant
DX: G95.0 Syringomyelia and syringobulbia (principal)

== ENCOUNTER → 2017-10-01 | Outpatient (CLI) | payer OTHER ==
[~2017-10-01] MED LIST changes: -AMT25 PO; -OMEP20TA PO; -PRED20TA2 PO
[2017-10-01 15:39] LABS: BASO % 0.4 %; BASO ABS # 0.03 K/uL (0-0.2); EOS ABS # 0.24 K/uL (0-0.5); HEMOGLOBIN 13.3 g/dL (12.0-16.0); IG# 0.02 K/uL (0.00-0.02); LYMPH % 36.4 %; LYMPH ABS # 2.89 K/uL (1.2-3.4); MEAN CELL VOLUME 86.3 fL (80-100); MEAN CORPUSCULAR HGB CONC 32.4 g/dl (32-36); MEAN PLATELET VOLUME 10.3 fL (7.4-10.4); MONO % 7.6 %; NEUT % 52.3 %; NEUT ABS # 4.15 K/uL (1.4-6.5); PLATELET COUNT 341 K/uL (130-400); RED CELL DISTRIBUTION WIDTH CV 13.2 % (11.5-14.5); RED CELL DISTRIBUTION WIDTH SD 42.2 fL (36.4-46.3); WHITE BLOOD COUNT 7.93 K/uL (4.8-10.8)
[2017-10-01 16:00] LABS: ALBUMIN 4.2 gm/dl (3.4-5.0); ALT/SGPT 24 U/L (12-78); BLOOD UREA NITROGEN 13 mg/dl (7-18); CALCIUM 9.1 mg/dl (8.5-10.1); CARBON DIOXIDE 27 mmol/L (21-32); CREATININE 0.79 mg/dl (0.60-1.20); GLUCOSE 70 mg/dl (70-99); POTASSIUM 4.1 mmol/L (3.5-5.1); SODIUM 137 mmol/L (136-145)
[2017-10-01 16:11] LABS: ALKALINE PHOSPHATASE 50 U/L (45-117); AST/SGOT 13 U/L (15-37); TOTAL PROTEIN 8.2 gm/dl (6.4-8.2)
[2017-10-05 23:21] LABS: ANA SCREEN TC 249X NEGATIVE (NEGATIVE)
== END | disposition home or self-care (01) ==
LOC: C.LAB 14:01
PROVIDERS: ATTEND Physician Assistant
DX: G60.9 Hereditary and idiopathic neuropathy, unspecified (principal); E55.9 Vitamin D deficiency, unspecified; M54.9 Dorsalgia, unspecified; M79.604 Pain in right leg

== ENCOUNTER 2022-09-09 22:14 | Inpatient (IN) ==
[2022-09-09] MEDS ORDERED: LIDOCAINE 1% LOCAL 20 ML VIAL INFIL PRN (22:46)
[2022-09-09] MEDS ORDERED: OXYTOCIN 30 UNITS/500 ML BAG IV PRN (22:46)
--- NOTE | 2022-09-09 23:01 | History & Physical Report ---
Date of Service September 09, 2022 Assessment & Plan (1) Syringomyelia: (2) SROM (spontaneous rupture of membranes): Admission and Anticipated Discharge Date Admission Date: September 09, 2022 History of Present Illness Chief Complaint: spontaneous rupture of membranes Primary Care Provider: Cari Lindsey, 32 F P0000 at40.5 weeks admitted with ROm clear fluid confirmed Nitrtazine positive. GBS is negative. Covid is pending. Has history of syrinx of spinal cord which is stable and sees neurology for this. Allergies Allergy/AdvReac Type Severity Reaction Status Date / Time Influenza Virus Vaccines AdvReac Severe neurologic Verified 07/10/22 15:36 symptoms such as numbness Home Medications Medication Instructions Recorded Confirmed Type cholecalciferol (vitamin D3) 50 2,000 units PO QAM 04/21/19 07/10/22 History mcg (2,000 unit) capsule folic acid 400 mcg tablet 0.4 mg PO PM 12/23/20 07/10/22 History prenat.vits,tomasa,gfx-ywmx-sbanq 1 tab PO DAILY 04/08/22 07/10/22 History ferrous sulfate PO 07/10/22 07/10/22 History Patient History Medical History (Updated 09/09/22 @ 23:01 by Deo Caldera MD) Migraine Paresthesias Perineural cysts Peripheral neuropathy Right hamstring muscle strain Sciatica Synovial cyst of sacral region Syringomyelia Surgical History History of dental surgery No significant past surgical history Family History Family/Other Breast cancer Grandfather (Maternal) Heart disease Grandfather (Paternal) Heart disease Other No pertinent family history Social History Smoking Status: Never smoker Preferred Language: Sinhala Feels Safe at Home: Yes 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 Review of Systems All systems reviewed & are unremarkable except as noted in HPI & below Physical Exam Constitutional: WD/WN, vitals as above Eyes: PERRL, conjunctivae normal, anicteric sclerae Neck: trachea midline, no thyromegaly Respiratory: normal respiratory effort, lungs clear to auscultation Cardiovascular: Rate/Rhythm: regular rate and regular rhythm Gastrointestinal (Abdomen): Inspection/Auscultation: abdomen normal to inspection Skin: no rashes, warm and dry Neurologic: patellar DTR's 2+ bilat, sensation intact Psychiatric: A+Ox3, euthymic affect Genitourinary: Manual OB Exam: + cervical dilation fingertip, + cervical effacement 20%, + station 0 and + amniotic fluid clear OB Exam Monitor Tracing: + external FHT monitor used, + external uterine monitor used, + category I and + normal FHT variability Code Status & VTE Plan VTE Prophylaxis Plan VTE Prophylaxis will be ordered: No Monitoring External Monitor Cat 1
[2022-09-09 23:30] LABS: Hemoglobin 10.9 g/dl (12.0-16.0); Mean Corpuscular Hemoglobin 27.9 pg (25.0-34.0); Mean Corpuscular Volume 84.4 fL (80.0-100.0); Mean Platelet Volume 9.9 fL (9.4-12.3); Platelet Count 286 K/uL (130-400); RDW Coefficient of Variation 13.2 % (11.5-14.5); RDW Standard Deviation 41.3 fL (36.4-46.3); Red Blood Count 3.91 M/uL (3.93-5.22); White Blood Count 8.56 K/ul (4.8-10.8)
[2022-09-09] MEDS ORDERED: OXYTOCIN 10 UNITS/ML VIAL ONE (23:30)
[2022-09-10] MEDS ORDERED: ACETAMINOPHEN 325 MG TAB ONE (02:25)
[2022-09-10] MEDS ORDERED: OXYTOCIN 30 UNITS/500 ML BAG IV PRN (08:57)
[2022-09-10] MEDS ORDERED: BUTORPHANOL TARTRATE 1 MG/ML VIAL IV PRN (09:00)
--- NOTE | 2022-09-10 09:00 | Obstetrical Progress Note ---
Date of Service September 10, 2022 Assessment & Plan Admission and Anticipated Discharge Date Admission Date: September 09, 2022 Subjective Patient is seen and examined. Reviewed her records and confirmed with her. PROM at 21:00 on 09/09, clear No ctxs/abd pain/ fever/ chills/vb +FM's Her has been uncomplicated. GBS neg FHR categ I VE: 1/ 50%/ -2, vertex, posterior Recommended IOL with Oxytocin for PROM at term She agrees and plans to get epidural for pain All questions were answered. Results & Data ([facility]) Vital Signs (Past 12 Hours) Vital Signs Temp Pulse Resp BP 09/10/22 08:12 68 101/63 09/10/22 06:04 36.6 C 78 17 98/57 L 09/10/22 02:03 36.9 C 71 16 94/57 L 09/10/22 00:35 17 09/10/22 00:35 36.8 C 17 09/10/22 00:13 68 98/61 L 09/09/22 23:00 36.9 C 17
[2022-09-10] MEDS: LACTATED RINGER'S 1,000 ML IV PRN ×5 (10:10→22:46)
[2022-09-10] MEDS ORDERED: SODIUM CHLORIDE 0.9% INJ 10 ML VIAL ONE (14:51)
[2022-09-10] MEDS ORDERED: ePHEDrine sulfate 50 MG/ML AMP ONE (14:51)
[2022-09-10] MEDS ORDERED: fentaNYL citrate 100 MCG/2 ML VIAL ONE (14:51)
[2022-09-10] MEDS ORDERED: LIDOCAINE 2%/EPINEPHRINE 1:200,000 20 ML SDV ONE (14:52)
[2022-09-10] MEDS ORDERED: fentaNYL 2MCG/ML ROPIVACAINE 1.25MG/ML 100 ML BAG EPI ONE (14:52)
[2022-09-10] MEDS ORDERED: BUPIVACAINE 0.25% 30 ML VIAL ONE (14:52)
[2022-09-10] MEDS ORDERED: fentaNYL 2MCG/ML ROPIVACAINE 1.25MG/ML 100 ML BAG EPI PRN (15:24)
[2022-09-10] MEDS ORDERED: ONDANSETRON INJ 2 MG/ML 2 ML VIAL IV PRN (15:24)
[2022-09-10] MEDS ORDERED: ePHEDrine sulfate 50 MG/ML AMP IV PRN (15:24)
[2022-09-10] MEDS ORDERED: NALOXONE HCL 0.4 MG/1 ML VIAL/CARP IV PRN (15:24)
[2022-09-10] MEDS ORDERED: NALBUPHINE HCL INJ 10 MG/ML AMP IV PRN (15:24)
[2022-09-10] MEDS ORDERED: NALOXONE HCL 1 MG in SODIUM CHLORIDE 0.9% 1000ML 1,000 ML IV PRN (15:24)
[2022-09-10] MEDS ORDERED: diphenhydrAMINE 50 MG/ML VIAL IV PRN (15:24)
--- NOTE | 2022-09-10 15:34 | Anesthesiology Consultation ---
Date of Service September 10, 2022 Assessment & Plan Chart Review Chart Review: Patient NOT seen in Pre Admission Testing and Acceptable Risk for Labor Epidural The patient has multiple neurologic issues. She was seen by neurology and is okay for epidural anesthesia. She is not known to have any structural issues in the lumbar region. The patient will have a straight epidural rather than a CSE. I discussed the possibility of worsening neurologic symptoms with the epidural. The patient understands and accepts this risk and would like to proceed. Consults Requested none ASA ASA2 Proposed Anesthesia Anesthesia Type: Labor Epidural Risk / Benefits Reviewed With: PT / POA / Parent / Guardian, Accepts Plan and Informed Consent Obtained History Height/Weight Height: 5 ft 4 in Weight: 61.689 kg Allergies Allergy/AdvReac Type Severity Reaction Status Date / Time Influenza Virus Vaccines AdvReac Severe neurologic Verified 07/10/22 15:36 symptoms such as numbness Medications Home Medications Medication Instructions Recorded Confirmed Last Taken cholecalciferol (vitamin D3) 50 2,000 units PO QAM 04/21/19 07/10/22 12/22/20 mcg (2,000 unit) capsule folic acid 400 mcg tablet 0.4 mg PO PM 12/23/20 07/10/22 1 Day Ago ~09/08/22 prenat.vits,tomasa,jtm-qhin-dwbde 1 tab PO DAILY 04/08/22 07/10/22 1 Day Ago ~09/08/22 ferrous sulfate PO 07/10/22 07/10/22 09/09/22 Active Medications Generic Name Dose Route Start Last Admin Trade Name Freq PRN Reason Stop Dose Admin Butorphanol Tartrate 1 mg 09/10/22 09:00 09/10/22 13:31 Butorphanol Tartrate 1 Mg/Ml Vial IV 10/10/22 08:59 1 mg Q3HWA PRN Administration Pain Lactated Ringer's 1,000 mls @ 125 mls/hr 09/09/22 22:46 09/10/22 15:12 Lr IV 09/11/22 22:45 999 mls/hr .Q8H PRN Infusion L&D Protocol Protocol Oxytocin 30 units in 500 mls @ 12 mls/hr 09/10/22 08:57 09/10/22 14:56 Pitocin IV 09/12/22 08:56 0.72 units/hr .Q24H PRN 12 mls/hr Labor Induction/Augmentation Titration Protocol 0.72 UNITS/HR NPO Date Last Intake of Fluids: 09/10/22 Time Last Intake of Fluids: 15:00 Date Last Intake of Solids: 09/10/22 Time Last Intake of Solids: 09:00 Past Medical History Medical History (Updated 09/09/22 @ 23:01 by Deo Caldera MD) Migraine Paresthesias Perineural cysts Peripheral neuropathy Right hamstring muscle strain Sciatica Synovial cyst of sacral region Syringomyelia Exercise / Class Metabolic Activity II 4-5 Yardwork/Stairs/Walk up hill Past Family History Family History Family/Other Breast cancer Grandfather (Maternal) Heart disease Grandfather (Paternal) Heart disease Other No pertinent family history Past Surgical History Surgical History History of dental surgery No significant past surgical history Past Anesthesia History No Hx of Anesthesia Complications and No Family Hx of Anesthesia Complications History of PONV No Hx of PONV and No Hx of Motion Sickness Social History Smoking Status: Never smoker Hx Alcohol Use: No Hx Substance Use: No Review of Systems no chest pain or sob, the patient has peripheral neuropathy in both lower and upper extremities, worse in lower extremities Physical Exam Vital Signs Last Vital Signs Temp 36.6 C 09/10/22 14:56 Pulse 80 09/10/22 15:25 Resp 18 09/10/22 14:56 BP 124/70 09/10/22 15:25 Pulse Ox 99 09/10/22 15:25 ENMT Mouth: no TMJ abnormality Thyromental Distance: > or= 3.5 Finger Breadths Mallampati Class: II Neck normal visual inspection Respiratory normal respiratory effort Auscultation: lungs clear to auscultation bilaterally Cardiovascular Rate/Rhythm: regular rate and regular rhythm Musculoskeletal Spine: normal cervical ROM Neurologic moves all extremities Psychiatric Orientation: alert and oriented x 3 Testing Laboratory Results 09/09/22 23:14
--- NOTE | 2022-09-10 16:09 | Obstetrical Progress Note ---
Date of Service September 10, 2022 Assessment & Plan Admission and Anticipated Discharge Date Admission Date: September 09, 2022 Subjective Patient is comfortable now, received epidural for pain VE; 2/ 60%/ -1, mid FHR categ I Pitocin is at 12 miu/min Continue to monitor closely and increase Pitocin Results & Data ([facility]) Vital Signs (Past 12 Hours) Vital Signs Temp Pulse Resp BP Pulse Ox 09/10/22 16:05 93 09/10/22 16:05 89 09/10/22 16:06 87 112/66 09/10/22 16:05 87 100 09/10/22 16:04 79 116/66 09/10/22 16:02 82 108/75 09/10/22 16:00 85 09/10/22 16:00 85 112/76 100 09/10/22 15:58 95 H 111/72 09/10/22 15:56 85 114/72 09/10/22 15:55 85 100 09/10/22 15:54 88 114/75 09/10/22 15:52 79 120/72 09/10/22 15:50 77 112/72 100 09/10/22 15:48 86 119/75 09/10/22 15:45 78 100 09/10/22 15:40 88 100 09/10/22 15:35 94 H 98 09/10/22 15:30 85 18 100 09/10/22 15:25 80 124/70 99 09/10/22 14:56 36.6 C 74 18 112/56 L 09/10/22 13:30 81 111/70 09/10/22 11:45 76 117/72 09/10/22 10:17 36.8 C 82 20 106/66 09/10/22 08:12 68 101/63 09/10/22 06:04 36.6 C 78 17 98/57 L
--- NOTE | 2022-09-10 19:33 | Obstetrical Progress Note ---
Date of Service September 10, 2022 Assessment & Plan Admission and Anticipated Discharge Date Admission Date: September 09, 2022 Subjective Patient is reevaluated FHR had decels after tachysystole, Oxytocin was turned off and IVF was given and recovered. VE; 4-5 cm/ 70&/-1, scalp stimulation caused FHR acceleration, increased variability. Categ I Continue to monitor closely. Results & Data ([facility]) Vital Signs (Past 12 Hours) Vital Signs Temp Pulse Resp BP Pulse Ox 09/10/22 19:09 36.6 C 18 09/10/22 19:25 80 97 09/10/22 19:20 86 98 09/10/22 19:17 91 H 107/69 09/10/22 19:15 109 H 98 09/10/22 19:10 85 99 09/10/22 19:05 93 H 99 09/10/22 19:02 85 102/64 09/10/22 19:00 84 20 99 09/10/22 18:55 81 99 09/10/22 18:50 82 99 09/10/22 18:47 88 104/69 09/10/22 18:45 81 99 09/10/22 18:40 86 99 09/10/22 18:35 85 100 09/10/22 18:31 88 104/63 09/10/22 18:30 36.8 C 88 18 100 09/10/22 18:25 86 99 09/10/22 18:20 78 99 09/10/22 18:17 91 H 92/53 L 09/10/22 18:15 102 H 100 09/10/22 18:10 104 H 99 09/10/22 18:05 99 H 100 09/10/22 18:02 77 95/52 L 09/10/22 18:00 76 18 99 09/10/22 17:55 88 99 09/10/22 17:50 82 99 09/10/22 17:47 81 102/59 L 09/10/22 17:45 80 100 09/10/22 17:40 74 100 09/10/22 17:35 78 99 09/10/22 17:34 78 90 09/10/22 17:33 71 103/64 09/10/22 17:30 78 18 96 09/10/22 17:25 75 99 09/10/22 17:20 75 99 09/10/22 17:17 75 102/61 09/10/22 17:15 78 100 09/10/22 17:10 74 99 09/10/22 17:05 89 98 09/10/22 17:02 78 98/58 L 09/10/22 17:00 77 18 100 09/10/22 16:55 72 100 09/10/22 16:50 78 100 09/10/22 16:47 76 97/54 L 09/10/22 16:45 80 100 09/10/22 16:40 75 100 09/10/22 16:00 18 09/10/22 16:00 18 09/10/22 16:35 80 99 09/10/22 16:34 81 104/66 09/10/22 16:30 77 18 100 09/10/22 16:25 81 100 09/10/22 16:20 81 99 09/10/22 16:16 18 111/69 09/10/22 16:15 79 100 09/10/22 16:14 82 18 111/59 L 09/10/22 16:12 88 18 123/58 L 09/10/22 16:10 82 109/56 L 100 09/10/22 16:08 93 H 18 124/62 09/10/22 16:05 93 09/10/22 16:05 89 09/10/22 16:06 87 18 112/66 09/10/22 16:05 87 100 09/10/22 16:04 79 18 116/66 09/10/22 16:02 82 18 108/75 09/10/22 16:00 85 09/10/22 16:00 85 112/76 100 09/10/22 15:58 95 H 18 111/72 09/10/22 15:56 85 18 114/72 09/10/22 15:55 85 100 09/10/22 15:54 88 18 114/75 09/10/22 15:52 79 18 120/72 09/10/22 15:50 77 112/72 100 09/10/22 15:48 86 119/75 09/10/22 15:45 78 100 09/10/22 15:40 88 100 09/10/22 15:35 94 H 98 09/10/22 15:30 85 18 100 09/10/22 15:25 80 124/70 99 09/10/22 14:56 36.6 C 74 18 112/56 L 09/10/22 13:30 81 111/70 09/10/22 11:45 76 117/72 09/10/22 10:17 36.8 C 82 20 106/66 09/10/22 08:12 68 101/63
[2022-09-10] MEDS: ceFAZolin 2000MG 2,000 MG/15 ML SYR IV SCH (19:37)
[2022-09-10] MEDS ORDERED: CALCIUM CARBONATE 500 MG CHEWABLE TAB PO PRN (19:47)
[2022-09-10] MEDS ORDERED: Nursing to Pharmacy Communication SCH (21:00)
[2022-09-10] MEDS ORDERED: MINERAL OIL 30 ML UDC ONE ×2 (22:09→22:58)
--- NOTE | 2022-09-10 22:28 | Obstetrical Progress Note ---
Date of Service September 10, 2022 Assessment & Plan Admission and Anticipated Discharge Date Admission Date: September 09, 2022 Subjective Patient has been seen and examined by myself many times. Complete dilatation achieved. FHR had been between categ I to II. Decels happened usually after repeated contractions and recovered when Pitocin was turned off with good variability and accels. Started to push with contractions. and had to stop Pitocin. FHR 130-140's, ctxs spaced out. Head is at +2 station. Moving down with contractions and gentle fundal pressure. Expected to be smaller/ normal size baby around 6- 6 1/2 lb. Continue to monitor closely. Results & Data ([facility]) Vital Signs (Past 12 Hours) Vital Signs Temp Pulse Resp BP Pulse Ox 09/10/22 19:09 36.6 C 18 09/10/22 22:20 90 100 09/10/22 22:18 101 H 111/71 09/10/22 22:15 97 H 100 09/10/22 22:10 84 98 09/10/22 22:05 88 97 09/10/22 22:03 81 109/67 09/10/22 22:00 99 H 99 09/10/22 21:55 108 H 98 09/10/22 21:50 91 H 97 09/10/22 21:47 80 106/61 09/10/22 21:45 102 H 97 09/10/22 21:40 89 97 09/10/22 21:35 89 97 09/10/22 21:32 96 H 112/68 09/10/22 21:30 96 H 97 09/10/22 21:25 94 H 98 09/10/22 21:20 93 H 100 09/10/22 21:17 83 115/69 09/10/22 21:15 95 H 100 09/10/22 21:10 113 H 100 09/10/22 21:05 83 100 09/10/22 21:02 78 105/61 09/10/22 21:00 87 100 09/10/22 20:55 85 100 09/10/22 20:50 80 100 09/10/22 20:47 84 100/69 09/10/22 20:45 86 100 09/10/22 20:40 83 98 09/10/22 20:35 85 98 09/10/22 20:32 84 110/65 09/10/22 20:30 85 99 09/10/22 20:25 90 98 09/10/22 20:20 86 99 09/10/22 20:15 80 98 09/10/22 20:10 80 98 09/10/22 20:05 96 H 99 09/10/22 20:03 76 97/56 L 09/10/22 20:00 87 98 09/10/22 19:55 85 98 09/10/22 19:50 96 H 98 09/10/22 19:47 100 H 96/61 L 09/10/22 19:45 100 H 98 09/10/22 19:40 91 H 98 09/10/22 19:35 81 98 09/10/22 19:32 83 94/61 L 09/10/22 19:30 82 98 09/10/22 19:25 80 97 09/10/22 19:20 86 98 09/10/22 19:17 91 H 107/69 09/10/22 19:15 109 H 98 09/10/22 19:10 85 99 09/10/22 19:05 93 H 99 09/10/22 19:02 85 102/64 09/10/22 19:00 84 20 99 09/10/22 18:55 81 99 09/10/22 18:50 82 99 09/10/22 18:47 88 104/69 09/10/22 18:45 81 99 09/10/22 18:40 86 99 09/10/22 18:35 85 100 09/10/22 18:31 88 104/63 09/10/22 18:30 36.8 C 88 18 100 09/10/22 18:25 86 99 09/10/22 18:20 78 99 09/10/22 18:17 91 H 92/53 L 09/10/22 18:15 102 H 100 09/10/22 18:10 104 H 99 09/10/22 18:05 99 H 100 09/10/22 18:02 77 95/52 L 09/10/22 18:00 76 18 99 09/10/22 17:55 88 99 09/10/22 17:50 82 99 09/10/22 17:47 81 102/59 L 09/10/22 17:45 80 100 09/10/22 17:40 74 100 09/10/22 17:35 78 99 09/10/22 17:34 78 90 09/10/22 17:33 71 103/64 09/10/22 17:30 78 18 96 09/10/22 17:25 75 99 09/10/22 17:20 75 99 09/10/22 17:17 75 102/61 09/10/22 17:15 78 100 09/10/22 17:10 74 99 09/10/22 17:05 89 98 09/10/22 17:02 78 98/58 L 09/10/22 17:00 77 18 100 09/10/22 16:55 72 100 09/10/22 16:50 78 100 09/10/22 16:47 76 97/54 L 09/10/22 16:45 80 100 09/10/22 16:40 75 100 09/10/22 16:00 18 09/10/22 16:00 18 09/10/22 16:35 80 99 09/10/22 16:34 81 104/66 09/10/22 16:30 77 18 100 09/10/22 16:25 81 100 09/10/22 16:20 81 99 09/10/22 16:16 18 111/69 09/10/22 16:15 79 100 09/10/22 16:14 82 18 111/59 L 09/10/22 16:12 88 18 123/58 L 09/10/22 16:10 82 109/56 L 100 09/10/22 16:08 93 H 18 124/62 09/10/22 16:05 93 09/10/22 16:05 89 09/10/22 16:06 87 18 112/66 09/10/22 16:05 87 100 09/10/22 16:04 79 18 116/66 09/10/22 16:02 82 18 108/75 09/10/22 16:00 85 09/10/22 16:00 85 112/76 100 09/10/22 15:58 95 H 18 111/72 09/10/22 15:56 85 18 114/72 09/10/22 15:55 85 100 09/10/22 15:54 88 18 114/75 09/10/22 15:52 79 18 120/72 09/10/22 15:50 77 112/72 100 09/10/22 15:48 86 119/75 09/10/22 15:45 78 100 09/10/22 15:40 88 100 09/10/22 15:35 94 H 98 09/10/22 15:30 85 18 100 09/10/22 15:25 80 124/70 99 09/10/22 14:56 36.6 C 74 18 112/56 L 09/10/22 13:30 81 111/70 09/10/22 11:45 76 117/72
[2022-09-11] MEDS ORDERED: MINERAL OIL 30 ML UDC ONE (00:08)
[2022-09-11] MEDS ORDERED: LIDOCAINE 2% LOCAL 20 ML VIAL ONE (00:21)
[2022-09-11] MEDS ORDERED: bisacodyL 10 MG SUPP PR PRN (00:55)
[2022-09-11] MEDS ORDERED: OXYTOCIN 30 UNITS/500 ML BAG IV PRN (00:55)
[2022-09-11] MEDS ORDERED: BENZOCAINE 20% AER SPR 82.5 GM CAN EXT PRN (00:55)
[2022-09-11] MEDS ORDERED: oxyCODONE/ACETAMINOPHEN 5mg/325mg TAB PO PRN (00:55)
[2022-09-11] MEDS ORDERED: DIPHTHERIA/TETANUS/PERTUSSIS 0.5mL SYR/VIAL (Age 7+yrs) IM ONE (00:55)
[2022-09-11] MEDS ORDERED: MEASLES, MUMPS & RUBELLA VIRUS VIAL SQ ONE (00:55)
[2022-09-11] MEDS ORDERED: ACETAMINOPHEN 325 MG TAB PO PRN (00:55)
[2022-09-11] MEDS ORDERED: HYDROCORTISONE ACETATE 25 MG SUPP PR PRN (00:55)
[2022-09-11] MEDS ORDERED: METHYLERGONOVINE MALEATE 0.2 MG/ML AMP IM ONE (00:55)
--- NOTE | 2022-09-11 01:06 | Delivery Summary ---
Vaginal Delivery Summary Date of Service September 11, 2022 Vaginal Delivery Summary Patient was found to be fully dilated and desired to push. She pushed for about 2-1/2 hours and was getting exhausted and unable to push effectively. The head was over a tight perineum. Small right mediolateral episiotomy was opened and with the next push the head was delivered without difficulty. The shoulders came right after the head without traction. There was nuchal cord around the neck x2. Those were reduced and he was handed off to the mother by mouth and nose were suctioned and the cord was clamped times and cut. The baby was vigorously moving and crying at that point. A terminal meconium was noted. Then the vagina and perineum were checked for lacerations. There was a small right mediolateral episiotomy which was second-degree and there was a small first-degree laceration urethra at the 1 o'clock position in the superior vagina. The mediolateral episode and was repaired with 2-0 Vicryl bringing the vaginal mucosa together bulbocavernosus muscle together and sinking in a subcuticular fashion. Excellent hemostasis was achieved. Then the first-degree laceration under the urethra was repaired with 3-0 Vicryl in a running locked fashion while a sterile catheter was in the urethra. And it was hemostatic and the catheter was removed. The rest of the vagina and labia were intact. Then the placenta was removed spontaneously as intact and complete. Uterus was explored and found to be empty, lower segment was cleared of all clots and debris, EBL was 250 mL and fundus was firm. The mom and baby tolerated procedure well. The sponge needle instrument count was correct x2. Baby was a viable male Apgars 8/9 and weight is pending. No complications happened and I was present during whole procedure.
--- NOTE | 2022-09-11 02:50 | Anesthesia Procedure Note ---
Date of Service September 11, 2022 Anesthesia Post Epidural Note Vital Signs Vital Signs: Temp Pulse Resp BP Pulse Ox 36.6 C 73 18 95/53 L 100 09/10/22 19:09 09/11/22 02:44 09/10/22 19:09 09/11/22 02:44 09/11/22 00:50 Pain Intensity Head: Pain Intensity: 4 Notes Mental Status: alert / awake / arousable and participated in evaluation Nausea / Vomiting: adequately controlled Pain: adequately controlled Airway Patency, RR, SpO2: stable & adequate BP & HR: stable & adequate Hydration State: stable & adequate Neuraxial Anesthesia: was administered and sensory block is resolving Anesthetic Complications: no major complications apparent and Pt Satisfied with anesthetic care Epidural: Removed without complications and With tip intact Notes: The patient is doing well. Her neurological symptoms are back to her baseline.
[2022-09-11] MEDS: ceFAZolin 2000MG 2,000 MG/15 ML SYR IV SCH (03:14)
[2022-09-11] MEDS: IBUPROFEN 600 MG TAB PO PRN ×4 (04:16→19:55)
[2022-09-11] MEDS: DOCUSATE SODIUM 100 MG CAP PO SCH ×2 (10:20→19:55)
[2022-09-11] MEDS: ACETAMINOPHEN 325 MG TAB PO PRN ×2 (10:22→21:31)
[2022-09-11] MEDS: PRENATAL VITAMIN 1 TAB PO SCH (10:22)
[2022-09-11] MEDS: FERROUS SULFATE 325 MG TAB PO SCH (10:22)
[2022-09-12 06:39] LABS: Hemoglobin 9.9 g/dl (12.0-16.0); Mean Corpuscular Hemoglobin 28.2 pg (25.0-34.0); Mean Corpuscular Volume 85.5 fL (80.0-100.0); Mean Platelet Volume 10.2 fL (9.4-12.3); Platelet Count 252 K/uL (130-400); RDW Coefficient of Variation 13.3 % (11.5-14.5); RDW Standard Deviation 41.6 fL (36.4-46.3); Red Blood Count 3.51 M/uL (3.93-5.22); White Blood Count 14.33 K/ul (4.8-10.8)
[2022-09-12] MEDS: IBUPROFEN 600 MG TAB PO PRN ×3 (08:31→20:53)
[2022-09-12] MEDS: DOCUSATE SODIUM 100 MG CAP PO SCH ×2 (08:31→20:53)
[2022-09-12] MEDS: PRENATAL VITAMIN 1 TAB PO SCH (08:31)
--- NOTE | 2022-09-12 08:32 | Obstetrical Progress Note ---
Date of Service September 12, 2022 Assessment & Plan Admission and Anticipated Discharge Date Admission Date: September 09, 2022 Subjective Patient is seen and examined. She feels well, no complaints. Ambulating without dizziness Voiding without difficulty Tolerating regular diet with out N&V Bleeding is minimal No fever/ chills/ CP/ SOB/ N&V/ Leg pain Breast feeding without problems Vital Signs Temp Pulse Resp BP Pulse Ox O2 Del Method 09/11/22 23:00 36.8 C 96 H 18 95/58 L 96 Room Air Vital Signs Temp Pulse Resp BP Pulse Ox O2 Del Method 09/11/22 23:00 36.8 C 96 H 18 95/58 L 96 Room Air 09/11/22 19:35 Room Air 09/11/22 19:35 36.6 C 62 18 97/62 L 97 Room Air 09/11/22 15:40 36.8 C 77 16 94/64 L 97 Room Air 09/11/22 13:15 36.5 C 85 20 101/65 Room Air Intake and Output 09/11/22 09/12/22 09/12/22 22:59 06:59 14:59 Intake Total 1000 / 1000 Balance 1000 / 1000 Intake: IV 1000 / 1000 Lactated Ringer's 1,000 ml @ 1000 / 1000 125 mls/hr IV .Q8H PRN Rx#: [id number] Lab Results 09/09/22 09/10/22 09/12/22 Range/Units 23:14 Unknown 06:18 WBC 8.56 14.33 H (4.8-10.8) K/ul RBC 3.91 L 3.51 L (3.93-5.22) M/uL Hgb 10.9 L 9.9 L (12.0-16.0) g/dl Hct 33.0 L 30.0 L (34.1-44.9) % MCV 84.4 85.5 (80.0-100.0) fL MCH 27.9 28.2 (25.0-34.0) pg MCHC 33.0 33.0 (32.0-36.0) g/dL RDW Std Deviation 41.3 41.6 (36.4-46.3) fL RDW Coeff of Carlton 13.2 13.3 (11.5-14.5) % Plt Count 286 252 (130-400) K/uL MPV 9.9 10.2 (9.4-12.3) fL SARS-CoV-2, RNA, NAAT NEGATIVE (NEGATIVE) PE: General: Alert, orientedx3, NAD Abd: soft, NT, fundus firm, below Umbilicus Perineum intact, Lochia rubra minimal Ext; NT, no edema AP: 32 yo s/p , ppd# 1 VSS Afebrile doing well Continue routine care All questions were answered D/C home tomorrow Results & Data ([facility]) Vital Signs (Past 12 Hours) Vital Signs Temp Pulse Resp BP Pulse Ox O2 Del Method 09/11/22 23:00 36.8 C 96 H 18 95/58 L 96 Room Air
[2022-09-12] MEDS: FERROUS SULFATE 325 MG TAB PO SCH (08:33)
[2022-09-12] MEDS ORDERED: bisacodyL 5 MG TABEC PO SCH (20:00)
[2022-09-13 06:58] LABS: Hematocrit (blood only) 29.3 % (34.1-44.9); Hemoglobin 9.7 g/dl (12.0-16.0)
--- NOTE | 2022-09-13 08:56 | Obstetrical Progress Note ---
Date of Service September 13, 2022 Assessment & Plan (1) Normal course: Continue routine PP care D/c home F/u in clinic Precautions given Subjective Ambulation: ambulating normally Voiding: no voiding problems Passing Gas:: Yes Diet Tolerance:: regular diet Lochia:: Small Feeding Type:: breast feeding Current Pain Level(1-10): 0 Doing well, just took a shower. No complaints. Triple feeding at this time. Wants to go home today. Physical Exam Constitutional WD/WN, vitals as above Respiratory normal respiratory effort, lungs clear to auscultation Cardiovascular RRR, no murmur, no edema Gastrointestinal (Abdomen) normal bowel sounds, soft, nontender, no hepatosplenomegaly Results & Data ([facility]) Vital Signs (Past 12 Hours) Vital Signs Temp Pulse Resp BP Pulse Ox O2 Del Method 09/12/22 23:07 36.6 C 73 16 92/60 L 97 Room Air 09/12/22 21:00 37.0 C 86 18 100/68 97 Room Air Laboratory Results Laboratory Results WBC 14.33 K/ul (4.8-10.8) H 09/12/22 06:18 RBC 3.51 M/uL (3.93-5.22) L 09/12/22 06:18 Hgb 9.7 g/dl (12.0-16.0) L 09/13/22 06:30 Hct 29.3 % (34.1-44.9) L 09/13/22 06:30 MCV 85.5 fL (80.0-100.0) 09/12/22 06:18 MCH 28.2 pg (25.0-34.0) 09/12/22 06:18 MCHC 33.0 g/dL (32.0-36.0) 09/12/22 06:18 RDW Std Deviation 41.6 fL (36.4-46.3) 09/12/22 06:18 RDW Coeff of Carlton 13.3 % (11.5-14.5) 09/12/22 06:18 Plt Count 252 K/uL (130-400) 09/12/22 06:18 MPV 10.2 fL (9.4-12.3) 09/12/22 06:18 SARS-CoV-2, RNA, NAAT NEGATIVE (NEGATIVE) 09/10/22 Unknown
[2022-09-13] MEDS: DOCUSATE SODIUM 100 MG CAP PO SCH (09:48)
[2022-09-13] MEDS: IBUPROFEN 600 MG TAB PO PRN (09:48)
[2022-09-13] MEDS: FERROUS SULFATE 325 MG TAB PO SCH (09:48)
[2022-09-13] MEDS: PRENATAL VITAMIN 1 TAB PO SCH (09:48)
== END 2022-09-13 14:05 | disposition home or self-care (01) | DRG 807 ==
LOC: OPB 22:14 → 4S1 22:40 → 4E2 09-11 04:34

== ENCOUNTER 2024-09-16 10:02 | Inpatient (IN) ==
[2024-09-16] MEDS ORDERED: LIDOCAINE 1% LOCAL 20 ML VIAL INFIL PRN (10:34)
[2024-09-16] MEDS ORDERED: OXYTOCIN 30 UNITS/NSS 30 UNITS/500 ML BAG IV PRN (10:34)
[2024-09-16] MEDS ORDERED: CALCIUM CARBONATE 500 MG CHEWABLE TAB PO PRN (10:34)
[2024-09-16] MEDS ORDERED: ACETAMINOPHEN 325 MG TAB PO PRN (10:34)
[2024-09-16] MEDS: SODIUM CHLORIDE 0.9% 1,000 ML IV SCH (11:00)
--- NOTE | 2024-09-16 11:02 | History & Physical Report ---
Date of Service September 16, 2024 Assessment & Plan (1) IUGR (intrauterine growth restriction): Plan: patient is a 34-year-old -0-0-1 at 38 weeks of gestation who was sent from office for induction of labor at term for IUGR, recommended by MFM, Vital signs stable afebrile, heart rate reassuring, GBS positive, plan to admit, monitor, labs, penicillin for GBS, Discussed options of either IV oxytocin Versus vaginal prostaglandin/ Cervidil, discussed the difference of protein details, patient desires to ambulate during labor and opted for Cervidil, It was inserted without difficulty, All questions were answered, Continue to monitor. (2) Peripheral neuropathy: (3) Paresthesias: (4) Positive GBS test: (5) with 38 completed weeks gestation: Admission and Anticipated Discharge Date Admission Date: September 16, 2024 History of Present Illness Primary Care Provider: Cari Lindsey DO patient is a 34-year-old -0-0-1 at 38 weeks of gestation who was sent from office for induction of labor at term due to recent ultrasound done yesterday, showing IUGR, EFW at 6th percentile, abdominal circumference is at 2nd percentile. patient has no complaints, denies contractions, leakage of fluid, vaginal bleeding. She reports good movements. She is known to me from 2022 when I delivered her first baby at 40 weeks and 6 days of gestation after spontaneous rupture of membranes, or baby boy's weight weight was 5 pound 12 ounce. this has been otherwise uncomplicated except GBS positive. 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, stable, no meds Allergies Allergy/AdvReac Type Severity Reaction Status Date / Time Influenza Virus Vaccines AdvReac Severe neurologic Verified 06/03/24 08:28 symptoms such as numbness Home Medications Medication Instructions Recorded Confirmed Type OTC PO 06/03/24 History Patient History Surgical History History of dental surgery No significant past surgical history Family History Family/Other Breast cancer Grandfather (Maternal) Heart disease Grandfather (Paternal) Heart disease Other No pertinent family history Social History Smoking Status: Never smoker Second Hand Exposure: No; Do You Dip or Chew Tobacco: No; Hx Alcohol Use: No Hx Substance Use: No Preferred Language: Polish Communication Ability: Effective Beer Coil Cleaner Required: No Beliefs That Will Affect Care: None marital status: Current Living Situation: Spouse Current Living Situation Comment: Hakeem- , Son- Connor Other Information That Helps Us Care for You: No Feels Safe at Home: Yes Safety Concerns: Feels Safe At This Time Assistive Devices: Contacts 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 History no history of STDs, no history of chlamydia, gonorrhea, herpes Review of Systems as per Subjective / HPI Physical Exam Constitutional: WD/WN, vitals as above well developed, well nourished and + thin Gastrointestinal (Abdomen): normal bowel sounds, soft, nontender, no hepatosplenomegaly ( gravid) Genitourinary: normal external appearance OB Exam Abdomen: + vertex Manual OB Exam: + cervical dilation 2 cm, + cervical effacement 50% and + station high ( -3, posterior) OB Exam Monitor Tracing: + external uterine monitor used and + category I Results & Data Vital Signs (Past 12 Hours) Vital Signs Temp Pulse Resp BP 09/16/24 10:23 90 103/56 L 09/16/24 10:21 36.5 C 90 18 103/56 L (2) Peripheral neuropathy Peripheral neuropathy type: idiopathic neuropathy, unspecified Qualified Code(s): G60.9 - Hereditary and idiopathic neuropathy, unspecified
[2024-09-16 11:06] LABS: Hematocrit (blood only) 30.4 % (37.0-47.0); Mean Corpuscular Hemoglobin 26.6 pg (25.0-34.0); Mean Corpuscular Hgb Conc 32.9 g/dL (32.0-36.0); Mean Corpuscular Volume 80.9 fL (80.0-100.0); Mean Platelet Volume 9.9 fL (9.4-12.4); Platelet Count 297 K/uL (130-400); RDW Coefficient of Variation 13.2 % (11.5-14.5); RDW Standard Deviation 38.3 fL (36.4-46.3); Red Blood Count 3.76 M/uL (4.20-5.40); White Blood Count 10.24 K/ul (4.8-10.8)
[2024-09-16] MEDS: DINOPROSTONE 10 MG INSERT PV ONE (11:12)
[2024-09-16] MEDS: PENICILLIN GK 6 MU in SODIUM CHLORIDE 0.9% 250 ML IV STA (11:18)
[2024-09-16 11:25] LABS: Albumin Globulin Ratio 1.2 (0.9-2); Albumin Level 3.4 gm/dl (3.4-5.0); Bilirubin,Total 0.3 mg/dl (0.2-1.0); Calcium 8.8 mg/dl (8.6-10.3); Creatinine Clr Calc Pharmacy 136.9 ml/min; Globulin 2.9 gm/dl (2.5-4.0); Potassium 3.8 mmol/L (3.5-5.1); Total Protein 6.3 gm/dl (6.0-8.3)
--- OUTSIDE RECORDS SUMMARY | 2024-09-16 14:42 | External Medical Summary | Summary of Care ---
Author Name Unknown Organization [facility] Address [address] [place] [address] Phone [phone] Care Team Providers Care Knockout Man Name Role Phone Unavailable Primary Care Provider Unavailabl e Encounter Details Date Type Department Care Team (Late st Contact Info) Description 09/05/2024 Orders Only Pharmacy, [place] [address] [place] [address] [facility] [address] [place] [address] Allergies Active Allergy Reactions Criticality Noted Date Comments Adhesive Tape Rash 05/28/2017 Influenza Virus Vac Live Quad 2021 Numbness Influenza Vac Split Quad 02/01/2021 documented as of this encounter (statuses as of 09/16/2024) Medications 28-0.8 MG Oral Tablet Take by mouth. Active Ondansetron HCl 4 MG Oral Tablet Take 1 Tablet by mouth 3 times a day. 40 Tablet 3 04/13/2024 Active Famotidine 20 MG Oral Tablet (Pepcid) Take 1 Tablet by mouth daily. For heartburn. 30 Tablet 1 07/11/2024 Active Docusate Sodium 100 MG Oral Capsule (Colace)Indicatio ns:Antepartum anemia complicating Take 1 tablet by mouth twice daily as needed. 60 Capsule 5 07/12/2024 Active documented as of this encounter (statuses as of 09/16/2024) Active Problems Problem Noted Date Diagnosed Date INFORMATION 09/02/2024 Overview (09/02/2024): Nurse at [facility] -Radiology Antepartum anemia complicating 024 Encounter for supervision of other normal , unspecified trimester 03/16/2024 ZITA (iron deficiency anemia) 07/11/2022 Tenosynovitis of left hand 06/12/2022 Migraine variant 06/26/2020 Paresthesias 06/26/2020 Overview (06/28/2020): Neuro work up unrevealing. Takes neurontin. Follows with neurology but no change in treatment plans as of May 2020. Syrinx of spinal cord 01/07/2013 Estimated Date of Delivery Comme nts Yes 09/30/2024 Based on Ultraso und documented as of this encounter (statuses as of 09/16/2024) Resolved Problems Problem Noted Date Diagnosed Date Resolved Date Antepartum anemia complicating 06/12/2022 10/09/2023 Overview (06/12/2022): Hgb 11.5 at 28 weeks. Vitron C once daily. Repeat CBC at 32 weeks. Supervision of normal first , antepartum 01/23/2022 10/27/2022 Advanced directives, counseling/discussion 02/24/2020 06/26/2020 Numbness and tingling 01/26/20192018 Migraines 01/26/2019 06/26/2020 Levator spasm 11/26/2018 06/26/2020 Dyspareunia in female 11/26/20182018 Depression 04/19/2014 05/13/2018 Lymph node enlargement 01/07/201305/13 Tension headache 03/29/2012 03/02/2019 Irritable bowel syndrome (IBS) 08/08/2011 08/08/2011 Gastritis and duodenitis 10/2018 Irritable bowel syndrome (IBS) 03/02/2019 documented as of this encounter (statuses as of 09/16/2024) Immunizations Name Administration Dates Next Due HEP A - Hepatitis A (Adult > 18 yrs) 02/02/2019 HPV Vaccine, 4-Valent 04/17/2007,11/15/2006,08/2006 PPD 08/26/2011,08/15/2011 Seasonal Influenza Vac., MDV , IM, 0.5 mL (Fluzone) 07/13/2015,06/13/2014,07/18/2013 Seasonal Influenza Virus Vac cine, Unspecified Formulation 07/01/2018 Seasonal Influenza, PF, 6 M & above, IM , (FluLaval or Fluzone) 06/18/2020,06/14/2019 Seasonal Influenza, Quadriva lent, No Preserve, IM 05/30/2017,06/14/2016 TDAP (age 10 and older)(Boostrix) 06/09/2022 TDAP, Age 7 and older, IM (Adacel) 02/12/2009 Typhoid Vaccine Oral (Vivotif) 02/02/2019 documented as of this encounter Social History Tobacco Use Types Packs/Day Years Used Date Smoking Tobacco: Never Smokeless Tobacco: Never Alcohol Use Standard Drinks/Week Comments Not Currently 0 (1 standard drink = 0.6 oz pur e alcohol) Rare PHQ-2 Answer Date Recorded PHQ Adult Total Score 0 12/15/2023 Hunger Vital Sign Answer Date Recorded Within the past 12 months, y ou worried that your food would run out before you got the money to buy more. Never true 03/16/20 24 Within the past 12 months, t he food you bought just didn't last and you didn't have money to get more. Never true 03/16/2024 [place] Depression Scale Answer Date Recorded [place] Depression Scale Total 2 03/16/2024 The thought of harming myself has occurred to me . Never 03/16/2024 Childcare Answer Date Recorded Do you feel overwhelmed with taking care of a child, family member or friend? No 03/16/2024 Does your family need help f inding childcare? (Household - for ages 0-17 years) Not on file 03/16/2024 Clothing Answer Date Recorded Have you been unable to get clothing when it was really needed? No 03/16/2024 Is your family able to get c lothes or diapers when needed? (Household - for ages 0-17 years) Not on file 03/16/2024 Personal Safety Answer Date Recorded Do you feel unsafe or have concerns for your saf ety? No 03/16/2024 Do you have concerns for you r family's safety? (Household - for ages 0-17 years) Not on file 03/16/2024 Utilities Answer Date Recorded Do you have trouble paying y our heating, water, or electric bill? No 03/16/2024 Is your family able to pay t he heat, water, or electric bill? (Household - for ages 0-17 years) Not on file 03/16/2024 Does your family have access to good internet? (Household - for ages 0-17 years) Not on file 03/16/2024 Employment Status Answer Date Recorded Are you unemployed or without regular income? No 03/16/2024 Does the household have a re lar source of income? (Household - for ages 0-17 years) Not on file 03/16/2024 Social Connections Answer Date Recorded How often do you feel lonely or isolated from th ose around you? Never 03/16/2024 Financial Resource Strain Answer Date R ecorded Do you have any trouble payi ng for your medications, or do you think you might in the future? No 03/16/2024 Does your family have troubl e paying for medicine? (Household - for ages 0-17 years) Not on file 03/16/2024 Transportation Needs Answer Date Record ed Do you have trouble getting a ride to medical visits or work? (Adult - for ages 18 years and over) Not on file 03/16/2024 Does your family have a hard time getting a ride to doctors visits? (Household - for ages 0-17 years) Not on file 03/16/2024 Has lack of transportation k ept you from medical appointments, meetings, work, or from getting things needed for daily living? Check all that apply. No 03/16/2024 Do you (or your family) have trouble finding or paying for a ride (transportation)? (Household - for ages 0-17 years) Not on file 03/16/2024 Housing Stability Answer Date Recorded Do you currently live in a s helter or have no steady place to sleep at night? No 03/16/2024 Do you think you are at risk of becoming homeless? (Adult - for ages 18 years and over) Not on file 03/16/2024 Does your family worry about paying for your home or becoming homeless? (Household - for ages 0-17 years) Not on file 0 03/16/2024 Are you homeless or worried that you might be in the future? No 03/16/2024 Are you (or your family) anitha eless or worried that you might be in the future? (Household - for ages 0-17 years) Not on file Food Insecurity Answer Date Recorded Do you need food for this week? No 03/16/2024 Are you able to get enough f ood for your family? (Household - for ages 0-17 years) Not on file 03/16/2024 Does your family need food t his week? (Household - for ages 0-17 years) Not on file 03/16/2024 Do you always have enough fo od for your family? (Household - for ages 0-17 years) Not on file 03/16/2024 Estimated Date of Delivery Comme nts Yes 09/30/2024 Based on Ultraso und Sex and Gender Information Value Date Recorded Sex Assigned at Female 10/03/2019 4:55 PM EST Legal Sex Female 6:51 AM EST Gender Identity Female 10/03/2019 4:55 PM EST Sexual Orientation Straight 10/03/2019 4: 55 PM EST documented as of this encounter Plan of Treatment Upcoming Encounters Date Type Department Care Team (Late st Contact Info) Description 09/21/2024 10:00 AM EST Pharmacy Pharmacy, [place] [address] [place] [address] Clinic, [place] [address] [place] [address] 12/14/2024 4:20 PM EDT Office Visit Family [facility] [address] [id number] Cari Lindsey DO [address] [id number] Health Maintenance Due Date Last Done Comments Hepatitis B Vaccine (1 of 3 - 19+ 3-dose series) 2009 COVID-19 Vaccine ( season) 2024 Influenza Vaccine (FLU shot) (#1) 2024 06/18/2020, 06/14/2019, 07/01/2018, Additional history exists Depression Screening 12/14/2024 12/15/2023 Pap Smear 01/31/2027 02/01/2024, 12/01, 08/17/2018, Additional history exists Cervical Cancer Screening 01/31/2029 HPV/Co-Test 01/31/2029 02/01/2024 DTap/Tdap Vaccines (3 - Td or Tdap) 06/09/2032 06/09/2022, 02/12/2009 HPV (Gardasil) Vaccine Completed 7, 11/15/2006, 08/31/2006 MENINGOCOCCAL (MENACTRA/MENVEO) Aged Out No longer eligible based on patient's age to complete this topic Pneumococcal Vaccine: Pediatrics (0 to 5 Years) and At-Risk Patients (6 to 18 Years and 19+ Years) Aged Out No longer eligib le based on patient's age to complete this topic documented as of this encounter Medical Devices Not on filedocumented as of this encounter
--- OUTSIDE RECORDS SUMMARY | 2024-09-16 14:42 | External Medical Summary | Summary of Care ---
Author Name Unknown Organization [facility] Address [address] [place] [address] Phone [phone] Care Team Providers Care Chute Worker Name Role Phone Unavailable Primary Care Provider Unavailabl e Reason for Visit * Reason Comments Return Visit Encounter Details Date Type Department Care Team (Late st Contact Info) Description 09/09/2024 10:45 AM EST Office Visit Gynecology/Obstetric s [facility] [address] [place] [address] Ron Solis MD [address] [place] [address] Encounter for supervision of other normal , unspecified trimester*; INFORMATION Allergies Active Allergy Reactions Criticality Noted Date Comments Adhesive Tape Rash 05/28/2017 Influenza Virus Vac Live Quad 2021 Numbness Influenza Vac Split Quad 02/01/2021 documented as of this encounter (statuses as of 09/09/2024) Medications 28-0.8 MG Oral Tablet Take by [...] as of this encounter (statuses as of 09/09/2024) Active Problems Problem Noted Date Diagnosed Date INFORMATION 09/02/2024 Overview (09/02/2024): Nurse at [facility] -Radiology Antepartum anemia complicating 024 Encounter for [...] as of this encounter (statuses as of 09/09/2024) Resolved Problems Problem Noted Date Diagnosed Date [...] as of this encounter (statuses as of 09/09/2024) Immunizations Name Administration Dates Next Due HEP [...] money to get more. Never true 03/16/2024 [place] Depression Scale Answer Date Recorded [place] Depression Scale Total 2 03/16/2024 The thought [...] No 03/16/2024 Does the household have a [facility] source of income? (Household - for ages [...] PM EST documented as of this encounter Last Filed Vital Signs Vital Sign Reading Time Taken Comments Blood Pressure 102/62 09/09/2024 10:43 AM EST Pulse - - Temperature - - Respiratory Rate - - Oxygen Saturation - - Inhaled Oxygen Concentration - - Weight 63.5 kg (140 lb) 09/09/2024 10:43 AM EST Height 160 cm (5' 3") 09/09/2024 10:43 AM EST Body Mass Index 24.8 09/09/2024 10:43 AM EST documented in this encounter Progress Notes * Ron Solis MD - 09/09/2024 10:57 AM EST Pt doing well No complaints ? SGA- growth scan ordered + GBS- Discussed anitbx in labor * Joseline Rivera LPN - 09/09/2024 10:43 AM EST 37w0d Cramping today documented in this encounter Plan of Treatment Upcoming Encounters Date Type Department Care Team (Late st Contact Info) Description 09/15/2024 3:30 PM EST Imaging Radiology [facility] 2nd [facility], [place] [address] [place] [address] 09/16/2024 8:15 AM EST Office Visit Gynecology/Obstetrics [facility] [address] [place] [address] Kimberly Tinajero PA-C [address] [place] [address] 09/16/2024 9:00 AM EST Hem/Onc Treatment Hematology/Oncology Treatment, [place] [address] [place] [phone] Aishwarya, Chair 6 Hem Onc Scenery [address] [place] [address] 09/16/2024 10:00 AM EST Pharmacy Pharmacy, [place] [address], [place] [id number] Clinic, Anemia [address] [place] [address] 12/14/2024 4:20 PM EDT Office Visit Family Practice [facility] [address] [place] [address] Cari Lindsey DO [address] [place] [address] Scheduled Orders Name Type Priority Associated Diagnoses Orde r Schedule US PREG FOLLOW-UP EACH FETUS Medical Imaging Routine Encounter for supervision of other normal , unspecified trimester INFORMATION Expected: 09/10/2024, Expires: 10/10/2025 Health Maintenance Due Date Last Done Comments Hepatitis B Vaccine (1 of 3 - 19+ 3-dose series) 2009 COVID-19 Vaccine ( season) 2024 Influenza Vaccine (FLU shot) (#1) 2024 06/18/2020, 06/14/2019, 07/01/2018, Additional history exists Depression Screening 12/14/2024 12/15/2023 Pap Smear 01/31/2027 02/01/2024, 04/, 08/17/2018, Additional history exists Cervical Cancer Screening [...] Not on filedocumented as of this encounter Visit Diagnoses Diagnosis Encounter for supervision of other normal , unspecified trimester- Primary INFORMATION documented in this encounter
--- OUTSIDE RECORDS SUMMARY | 2024-09-16 14:42 | External Medical Summary | Summary of Care ---
Author Name Unknown Organization [facility] Address [address] [place] [address] Phone [phone] Care Team Providers Care Safety And Skill Based Pay Manager Name Role Phone Cari Lindsey DO Primary Care Provider [phone] Reason for Referral * Evaluate & Treat - Unlimited Visits (Within 10 days (routine)) - Authorized Specialty Diagnoses / Procedures Referred By Contflavio t Referred To Contact Pharmacist / Pharmacy Diagnoses ZITA (iron deficiency anemia) Bridget Waller CRNP [address] [place] [address] Phone: tel: fax: Referral ID Status Reason Start Date Expiration Date Visits Requested Visits Authorized [id number] Authorized Specialty Services Required 4 02/12/2025 99 99 Question Answer Referral Priority Within 10 days (routine) Where should this appointment be scheduled? [facility] Referring Provider Role: Specialist Specialty: flange machine operator Reason for Referral: Anemia Comments Pharmacist Medication Therapy Management: Iron deficiency anemia Srikanth Bryant RN Reason for Visit * Reason Onset Date Comments Blood Management Program 08/16/2024 Encounter Details Date Type Department Care Team (Late st Contact Info) Description 08/16/2024 Telephone Patient Blood Management, [place] [address] [place] [address] Bridget Waller CRNP [address] [place] [address] Blood Management Program Allergies Active Allergy Reactions Criticality Noted Date Comments Adhesive Tape Rash 05/28/2017 Influenza Virus Vac Live Quad 2021 Numbness Influenza Vac Split Quad 02/01/2021 documented as of this encounter (statuses as of 09/12/2024) Medications 28-0.8 MG Oral Tablet Take by [...] as of this encounter (statuses as of 09/12/2024) Active Problems Problem Noted Date Diagnosed Date INFORMATION 09/02/2024 Overview (09/02/2024): Nurse at [facility] -Radiology Antepartum anemia complicating 024 [...] as of this encounter (statuses as of 09/12/2024) Resolved Problems Problem Noted Date Diagnosed Date [...] as of this encounter (statuses as of 09/12/2024) Immunizations Name Administration Dates Next Due HEP [...] money to get more. Never true 03/16/2024 [place] Depression Scale Answer Date Recorded [place] Depression Scale Total 2 03/16/2024 The thought [...] 03/16/2024 Does the household have a re gular source of income? (Household - for ages [...] PM EST documented as of this encounter Miscellaneous Notes * Telephone Encounter - Houseknecht, Srikanth M, RN - 08/16/2024 3:01 PM EST Recommend SEVERIANO per OB MTM guidelines. Patient agreeable to infusion at [facility]. documented in this encounter Plan of Treatment Upcoming Encounters Date Type Department Care Team (Late st Contact Info) Description 09/15/2024 3:30 PM EST Imaging Radiology [facility] 2nd Floor, [place] [address] [place] [address] 09/16/2024 8:15 AM EST Office Visit Gynecology/Obstetrics [facility] [address] [place] [address] Kimberly Tinajero PA-C [address] [place] [address] 09/16/2024 9:00 AM EST Hem/Onc Treatment Hematology/Oncology Treatment, [place] [address] [place] [phone] Aishwarya, Chair [address], [place] [address] 09/16/2024 10:00 AM EST Pharmacy Pharmacy, [place] [address] [place], [place] [phone] Clinic, Anemia [address] [place] [address] 12/14/2024 4:20 PM EDT Office Visit Family Practice [facility] [address] [place] [address] Cari Lindsey DO [address] [place] [address] Scheduled Referrals Name Type Priority Associated Diagnoses Orde r Schedule PHARMACIST MEDS THERAPY MGMT REFERRAL OP Referral Within 10 days (routine) ZITA (iron deficiency anemia) Ordered: 08/16/2024 Health Maintenance Due Date Last Done Comments Hepatitis B Vaccine (1 of 3 - 19+ 3-dose series) 2009 COVID-19 Vaccine (2023- season) 2024 Influenza Vaccine (FLU shot) (#1) [...] as of this encounter Visit Diagnoses Diagnosis ZITA (iron deficiency anemia)- Primary Iron deficiency anemia, unspecified documented in this encounter Care Teams Safety And Skill Based Pay Manager Relationship Specialty Start Date End Date Cari Lindsey DO [address] [place] [address] PCP - General Family Medicine 05/01/16 09/01/24 documented as of this encounter
--- OUTSIDE RECORDS SUMMARY | 2024-09-16 14:43 | External Medical Summary | Summary of Care ---
Author Name Unknown Organization [facility] Address [address] [place] [address] Phone [phone] Care Team Providers Care Movie Star Name Role Phone Unavailable Primary Care Provider Unavailabl e Reason for Visit * Reason Comments Anemia Follow-Up Encounter Details Date Type Department Care Team (Late st Contact Info) Description 09/02/2024 8:30 AM [facility] Pharmacy Pharmacy, [place] [address] [place], [place] [phone] Clinic, Anemia [address] [place], [place] [phone] Iron deficiency anemia, unspecified iron deficiency anemia type* Allergies Active Allergy Reactions Criticality Noted Date Comments Adhesive Tape Rash 05/28/2017 Influenza Virus Vac Live Quad 2021 Numbness Influenza Vac Split Quad 02/01/2021 documented as of this encounter (statuses as of 09/02/2024) Medications 28-0.8 MG Oral Tablet Take by mouth. Active Ondansetron HCl 4 MG Oral Tablet Take 1 Tablet by mouth 3 times a day. 40 Tablet 3 4 Active Famotidine 20 MG Oral Tablet (Pepcid) Take 1 Tablet by mouth daily. For heartburn. 30 Tablet 1 4 Active Docusate Sodium 100 MG Oral Capsule (Colace)Indicati ons:Antepartum anemia complicating Take 1 tablet by mouth twice daily as needed. 60 Capsule 5 4 Active Folic Acid 400 MCG Oral Tablet Take 1 Tablet by mouth in the morning. 025 Discontinued documented as of this encounter (statuses as of 09/02/2024) Active Problems Problem Noted Date Diagnosed Date INFORMATION 09/02/2024 Overview (09/02/2024): Nurse at [facility] -Radiology Antepartum anemia complicating 024 [...] as of this encounter (statuses as of 09/02/2024) Resolved Problems Problem Noted Date Diagnosed Date [...] as of this encounter (statuses as of 09/02/2024) Immunizations Name Administration Dates Next Due HEP [...] money to get more. Never true 03/16/2024 [place] Depression Scale Answer Date Recorded [place] Depression Scale Total 2 03/16/2024 The thought [...] No 03/16/2024 Does the household have a [facility] source [facility] income? (Household - for ages [...] PM EST documented as of this encounter Progress Notes * Liv Montes De Oca [facility] - 09/02/2024 12:57 PM EST Patient Phone Numbers Patient referred by CLARITA Childs, for evaluation of anemia by the Anemia Clinic. Return call from patient. Called patient back to introduce role/clinic and to review labs from 07/11/24. Hgb: 10.3 g/dL TSAT: 7 % Ferritin: 7 ng/mL GA: 36w0d Estimated Date of Delivery: 09/30/24 Hgb is below target range for the 3rd trimester. Iron studies below target range. Patient reports feeling tired, but otherwise denies signs/symptoms of anemia. Patient is not currently taking FA 400 mcg PO daily (removed from med list - patient states she is taking this in her PNV). Patient unable to tolerate PO iron due to nausea and heartburn. Patient qualifies for IV iron repletion. Plan: Iron dextran (INFeD) 1000 mg IV x 1 dose @ [facility]. Orders placed and routed to appropriate parties. Patient agreeable to intervention. Patient stated she does not have a history of asthma, severe allergic reaction or multiple allergies. Anemia Clinic will continue to follow. Thank you for allowing us to participate in the care of thispatient. Liv Montes De Oca, PharmD, [facility] Clinical Pharmacist [facility] (P: [phone]) 09/02/2024 1:11 PM documented in this encounter Miscellaneous Notes * Addendum Note - Liv Montes De Oca RPh - 09/02/2024 1:18 PM ESTAddended by: LIV MONTES DE OCA on: 09/02/2024 01:18 PM Modules accepted: Orders documented in this encounter Plan of Treatment Upcoming Encounters Date Type Department Care Team (Late st Contact Info) Description 09/09/2024 10:45 AM EST Office Visit Gynecology/Obstetrics [facility] [address] [place] [address] Ron Solis MD [address] [place] [address] 09/16/2024 10:00 AM EST Pharmacy Pharmacy, [place] [address] [place] [address] Clinic, Anemia [address] [place] [address] 12/14/2024 4:20 PM EDT Office Visit Family Practice [facility] [address] [place] [address] Cari Lindsey DO [address] [place] [address] Health Maintenance Due Date Last Done Comments [...] as of this encounter Visit Diagnoses Diagnosis Iron deficiency anemia, unspecified iron deficiency anemia type- Primary documented in this encounter
--- OUTSIDE RECORDS SUMMARY | 2024-09-16 14:43 | External Medical Summary | Summary of Care ---
Author Name Unknown Organization [facility] Address [address] [place] [place] [place] [address] Phone [phone] Care Team Providers Care Spray Technician Name Role Phone Unavailable Primary Care Provider Unavailabl e Reason for Visit * Reason Onset Date Comments Other 09/02/2024 InFed Encounter Details Date Type Department Care Team (Late st Contact Info) Description 09/02/2024 Telephone Hematology/Oncology Treatment, [place] [address] [place] [address] Bridget Waller CRNP [address] [facility] [address] Other (InFed) Allergies Active Allergy Reactions Criticality Noted Date Comments Adhesive Tape Rash 05/28/2017 Influenza Virus Vac Live Quad 2021 Numbness Influenza Vac Split Quad 02/01/2021 documented as of this encounter (statuses as of 09/06/2024) Medications 28-0.8 MG Oral Tablet Take by [...] as of this encounter (statuses as of 09/06/2024) Active Problems Problem Noted Date Diagnosed Date INFORMATION 09/02/2024 Overview (09/02/2024): Nurse at [facility] -Radiology Antepartum anemia complicating 024 Encounter for [...] as of this encounter (statuses as of 09/06/2024) Resolved Problems Problem Noted Date Diagnosed Date [...] as of this encounter (statuses as of 09/06/2024) Immunizations Name Administration Dates Next Due HEP [...] money to get more. Never true 03/16/2024 [place] Depression Scale Answer Date Recorded [place] Depression Scale Total 2 03/16/2024 The thought [...] encounter Miscellaneous Notes * Telephone Encounter - Juan C Guzman OSA - 09/06/2024 8:33 AM EST Patient scheduled and aware * Telephone Encounter - Seema Odell RN - 09/06/2024 7:43 AM EST [place] is signed. Scheduling: please call patient to schedule 3 hour appt "infed" (Bridget Waller). Thanks! * Telephone Encounter - Rosy Tinajero LPN - 09/02/2024 3:03 PM EST Order received for InFed [place] [id number] No prior authorization required. Awaiting provider signature before scheduling patient. Per Bridget Waller: Patient with estimated due date of 09/30/24, please schedule DORA documented in this encounter Plan of Treatment Upcoming Encounters Date Type Department Care Team (Late st Contact Info) Description 09/09/2024 10:45 AM EST Office Visit Gynecology/Obstetrics [facility] [address] [place] [address] Ron Solis MD [address] [place] [address] 09/16/2024 9:00 AM EST Hem/Onc Treatment Hematology/Oncology Treatment, [place] [address] [place] [address] Aishwarya, Chair 6 Hem Onc Scenery [address] [place] [address] 09/16/2024 10:00 AM EST Pharmacy Pharmacy, [place] [address] [place], [place] [address] Clinic, Anemia [address] [place] [address] 12/14/2024 4:20 PM EDT Office Visit Family Practice [facility] [address] [place] [address] Cari Lindsey DO [address] [place] [address] Health Maintenance Due Date Last Done Comments Hepatitis B Vaccine (1 of 3 - 19+ 3-dose series) 2009 COVID-19 Vaccine ( - 2023- season) 2024 Influenza Vaccine (FLU shot) (#1) 2024 06/18/2020, 06/14/2019, 07/01/2018, Additional history exists Depression Screening 12/14/2024 12/15/2023 Pap Smear 01/31/2027 02/01/2024, 04/3 , 08/17/2018, Additional history exists Cervical Cancer Screening [...]
--- OUTSIDE RECORDS SUMMARY | 2024-09-16 14:43 | External Medical Summary ---
Author Name Unknown Address Unknown Organization K01:[facility] - [facility] [address] [place] [address] Laboratory Report Ordering Provider Test Date Status ANDRE RICKETTS 09/02/2024 09:18:55 Final Observation Date Value Abnormality Reference (Units ) Status Streptococcus agalactiae DNA [Presence] in Specimen by LINCOLN with probe detection 09/02/2024 09:18:55 Positive Abnormal Negative Final Group B Streptococcus detect ed by culture-enhanced PCR (amplified probe). GBS GBSCT - [facility] 09/02/2024 09:18:55 25.1 Final GBS SPCCT - [facility] 09/02/2024 09:18:55 0.0 Final Performing Location [facility] - [address] [place] [address]
--- OUTSIDE RECORDS SUMMARY | 2024-09-16 14:43 | External Medical Summary | Summary of Care ---
Author Name Unknown Organization [facility] Address [address] [facility] [address] Phone [phone] Care Team Providers Care Production Packager Name Role Phone Unavailable Primary Care Provider Unavailabl e Reason for Visit * Reason Onset Date Comments Other 09/02/2024 InFed Encounter Details Date Type Department Care Team (Late st Contact Info) Description 09/02/2024 Telephone Hematology/Oncology Treatment, [place] [address] [place] [address] Bridget Waller CRNP [address] [facility] [address] Other (InFed) Allergies Active Allergy Reactions Criticality [...] Date INFORMATION 09/02/2024 Overview (09/02/2024): Nurse at [facility] -Radiology Antepartum anemia complicating 024 Encounter for [...] money to get more. Never true 03/16/2024 [place] Depression Scale Answer Date Recorded [place] Depression Scale Total 2 03/16/2024 The thought [...] encounter Miscellaneous Notes * Telephone Encounter - Seema Odell RN - 09/06/2024 7:43 AM EST [place] is signed. Scheduling: please call patient to schedule 3 hour appt "infed" (Bridget Waller). Thanks! * Telephone Encounter - Rosy Tinajero LPN - 09/02/2024 3:03 PM EST Order received for InFed [place] plan built and routed to p [phone] No prior authorization required. Awaiting provider signature before scheduling patient. Per Bridget Waller: Patient with estimated due date of 09/30/24, please schedule DORA documented in this encounter Plan of Treatment Upcoming Encounters Date Type Department Care Team (Late st Contact Info) Description 09/09/2024 10:45 AM EST Office Visit Gynecology/Obstetrics [facility] [address] [place] [address] Ron Solis MD [address] [place] [address] 09/16/2024 10:00 AM EST Pharmacy Pharmacy, [place] [address], [place] [phone] Clinic, [facility] [address] [place], [place] [address] 12/14/2024 4:20 PM EDT Office Visit Family Practice [facility] [address] [place] [address] [address] Cari Lindsey DO [address] [place] [address] Health Maintenance Due Date Last Done Comments Hepatitis B Vaccine (1 of - 19+ 3-dose series) 2009 COVID-19 Vaccine [...] and 19+ Years) Aged Out No longer elibrendanb davon based on patient's age to complete this topic documented as of this encounter Medical Devices Not on filedocumented as of this encounter
--- OUTSIDE RECORDS SUMMARY | 2024-09-16 14:43 | External Medical Summary | Summary of Care ---
Author Name Unknown Organization [facility] Address [address] [facility] [address] Phone [phone] Care Team Providers Care Edge Cutter Name Role Phone Unavailable Primary Care Provider Unavailabl e Encounter Details Date Type Department Care Team (Late st Contact Info) Description 09/02/2024 Orders Only [facility] [address] [place] [address] Bridget Waller CRNP [address] [place] [address] Iron deficiency anemia, unspecified iron deficiency anemia [...] Date INFORMATION 09/02/2024 Overview (09/02/2024): Nurse at [facility] -Radiology Antepartum anemia complicating 024 [...] money to get more. Never true 03/16/2024 [place] Depression Scale Answer Date Recorded [place] Depression Scale Total 2 03/16/2024 The thought [...] ages 0-17 years) Not on file 03/16/2024 Are you homeless or worried that [...] 09/09/2024 10:45 AM EST Office Visit Gynecology/Obstetrics [facility] [address] [place] [address] [address] Ron Solis MD [address] [place] [address] 09/16/2024 10:00 AM EST Pharmacy Pharmacy, [place] [address] [facility] [address] Clinic, [facility] [address] [place] [address] 12/14/2024 4:20 PM EDT Office Visit Family Practice [facility] [address] [address] Cari Lindsey DO [address] [place] [address] Health Maintenance Due Date Last Done Comments [...]
--- OUTSIDE RECORDS SUMMARY | 2024-09-16 14:43 | External Medical Summary | Summary of Care ---
Author Name Unknown Organization [facility] Address [address] [place] [facility] [place] [place] [address] Phone [phone] Care Team Providers Care Construction Inspector Name Role Phone Unavailable Primary Care Provider Unavailabl e Reason for Visit * Reason Onset Date Comments Other 09/02/2024 InFed Encounter Details Date Type Department Care Team (Late st Contact Info) Description 09/02/2024 Telephone Hematology/Oncology Treatment, [place] [address] [place] [address] Bridget Waller CRNP [address] [facility] [address] Other (InFed) Allergies Active Allergy Reactions Criticality [...] Date INFORMATION 09/02/2024 Overview (09/02/2024): Nurse at [facility] -Radiology Antepartum anemia complicating 024 [...] money to get more. Never true 03/16/2024 [place] Depression Scale Answer Date Recorded [place] Depression Scale Total 2 03/16/2024 The thought [...] encounter Miscellaneous Notes * Telephone Encounter - Rosy Tinajero LPN - 09/02/2024 3:03 PM EST Order received for InFed [place] plan [place] to p [phone] No prior authorization required. Awaiting provider signature before scheduling patient. Per Bridget Martínezail: Patient with estimated due date of 09/30/24, please schedule DORA documented in this encounter Plan of Treatment Upcoming Encounters Date Type Department Care Team (Late st Contact Info) Description 09/09/2024 10:45 AM EST Office Visit Gynecology/Obstetrics [facility] [address] [place] [address] Ron Solis MD [address] [place] [address] 09/16/2024 10:00 AM EST Pharmacy Pharmacy, [place] [address] [place] [address] Clinic, [facility] [address] [place] [address] 12/14/2024 4:20 PM EDT Office Visit Family [facility] [address] [place] [address] Cari Lindsey DO [address] [place] [address] Health Maintenance Due Date Last Done Comments [...]
--- OUTSIDE RECORDS SUMMARY | 2024-09-16 14:43 | External Medical Summary | Summary of Care ---
Author Name Unknown Organization [facility] Address [address] [place] [address] Phone [phone] Care Team Providers Care Radiochemical Technician Name Role Phone Unavailable Primary Care Provider Unavailabl e Encounter Details Date Type Department Care Team (Late st Contact Info) Description 09/05/2024 Orders Only Pharmacy, [place] [address] [place] [address] [facility] [address] [place] [address] Allergies Active Allergy Reactions Criticality Noted Date Comments Adhesive Tape Rash 05/28/2017 Influenza Virus Vac Live Quad 2021 Numbness Influenza Vac Split Quad 02/01/2021 documented as of this encounter (statuses as of 09/05/2024) Medications 28-0.8 MG Oral Tablet Take by [...] as of this encounter (statuses as of 09/05/2024) Active Problems Problem Noted Date Diagnosed Date INFORMATION 09/02/2024 Overview (09/02/2024): Nurse at [facility] -Radiology Antepartum anemia complicating 024 Encounter for [...] as of this encounter (statuses as of 09/05/2024) Resolved Problems Problem Noted Date Diagnosed Date [...] as of this encounter (statuses as of 09/05/2024) Immunizations Name Administration Dates Next Due HEP [...] money to get more. Never true 03/16/2024 [place] Depression Scale Answer Date Recorded [place] Depression Scale Total 2 03/16/2024 The thought [...] 09/09/2024 10:45 AM EST Office Visit Gynecology/Obstetrics [facility] [address] [address] Ron Solis MD [address] [address] 09/16/2024 10:00 AM EST Pharmacy Pharmacy, [place] [address] [place] [address] Clinic, [facility] [address] [place] [address] 12/14/2024 4:20 PM EDT Office Visit Family Practice [facility] [address] [address] Cari Lindsey DO [address] [address] Health Maintenance Due Date Last Done Comments [...]
--- OUTSIDE RECORDS SUMMARY | 2024-09-16 14:43 | External Medical Summary | Summary of Care ---
Author Name Unknown Organization [facility] Address [address] [place] [address] Phone [phone] Care Team Providers Care Anesthesiologist Physician Name Role Phone Cari Lindsey DO Primary Care Provider [phone] Reason for Visit * Reason Comments Dosage Adjustment Via Phone (anticoag Cl inic) Anemia Follow-Up Encounter Details Date Type Department Care Team (Late st Contact Info) Description 08/29/2024 4:00 PM [facility] Pharmacy Pharmacy, [place] [address] [place], [place] [id number] Clinic, Anemia [address] [place] [address] Iron deficiency anemia, unspecified iron deficiency anemia type* Allergies Active Allergy Reactions Criticality Noted Date Comments Adhesive Tape Rash 05/28/2017 Influenza Virus Vac Live Quad 2021 Numbness Influenza Vac Split Quad 02/01/2021 documented as of this encounter (statuses as of 08/29/2024) Medications Vitamin D3 1.25 MG (51239 UT) Oral Capsule Take 1 Capsule by mouth once a week. 4 Active Folic Acid 400 MCG Oral Tablet Take 1 Tablet by mouth in the morning. Active 28-0.8 MG Oral Tablet Take by mouth. [...] as needed. 60 Capsule 5 4 Active Iron-Vitamin C 65-125 MG Oral Tablet (Vitron C)Indications:An tepartum anemia complicating Take 1 tablet by mouth twice a day. 60 Tablet 5 4 Active Additional Information Patient not taking.Reported on 08/15/2024 documented as of this encounter (statuses as of 08/29/2024) Active Problems Problem Noted Date Diagnosed Date Antepartum anemia complicating 024 Encounter for supervision [...] as of this encounter (statuses as of 08/29/2024) Resolved Problems Problem Noted Date Diagnosed Date [...] as of this encounter (statuses as of 08/29/2024) Immunizations Name Administration Dates Next Due HEP [...] money to get more. Never true 03/16/2024 [place] Depression Scale Answer Date Recorded [place] Depression Scale Total 2 03/16/2024 The thought [...] No 03/16/2024 Does the household have a [facility] source of income? (Household - for ages [...] as of this encounter Progress Notes * Apolinar Limon, [facility] - 08/29/2024 3:47 PM EST Patient Phone Numbers Patient referred by CLARITA Childs for evaluation of anemia by the Anemia Clinic. Called patient to introduce role/clinic and to review labs from 07/11. GUZMANOVShadia. Hgb: 10.3 g/dL TSAT: 7 % Ferritin: 7 ng/mL GA: 35w3d Estimated Date of Delivery: 09/30/24 Hgb is below target range for the third trimester. Iron studies below target range. Per chart review, patient is taking Vitron C twice daily and appears to be tolerating it well. Oral iron replenishment inadequate or contraindicated. Patient qualifies for IV iron repletion. Tentative Plan: Iron dextran (INFeD) 1000 mg IV x 1 dose @ [facility]. Orders need to be placed and routed to appropriate parties if patient agreeable to intervention. Follow-up labs to be scheduled ~4-6 weeks after iron repletion completed if appropriate prior to delivery. Anemia Clinic will continue to follow. Thank you for allowing us to participate in the care of thispatient. Apolinar Limon, PharmD Clinical Pharmacist [facility] Anemia Clinic (P: [phone]) 08/29/2024, 3:47 PM documented in this encounter Plan of Treatment Upcoming Encounters Date Type Department Care Team (Late st Contact Info) Description 09/02/2024 8:30 AM EST Office Visit Gynecology/Obstetrics [facility] [address] [address] Ron Solis MD [address] [address] 09/05/2024 4:00 PM EST Pharmacy Pharmacy, [place] [address] [place] [address] Clinic, [facility] [address] [place] [address] 12/14/2024 4:20 PM EDT Office Visit Family Practice [facility] [address] [address] Cari Lindsey DO [address] [address] Health Maintenance Due Date Last Done Comments [...] anemia type- Primary documented in this encounter Care Teams Anesthesiologist Physician Relationship Specialty Start Date End Date Cari Lindsey DO [address] [address] PCP - General Family Medicine 05/01/16 documented as of this encounter
--- OUTSIDE RECORDS SUMMARY | 2024-09-16 14:43 | External Medical Summary | Summary of Care ---
Author Name Unknown Organization [facility] Address [address] [place] [address] Phone [phone] Care Team Providers Care Jammer Hooker Name Role Phone Unavailable Primary Care Provider Unavailabl e Reason for Visit * Reason Comments Anemia Follow-Up Encounter Details Date Type Department Care Team (Late st Contact Info) Description 09/02/2024 8:30 AM [facility] Pharmacy Pharmacy, [place] [address] [place], [place] [phone] Clinic, Anemia [address] [place], [place] [id number] Iron deficiency anemia, unspecified iron deficiency anemia [...] Date INFORMATION 09/02/2024 Overview (09/02/2024): Nurse at [facility] -Radiology Antepartum anemia complicating 024 Encounter for [...] money to get more. Never true 03/16/2024 [place]ison Depression Scale Answer Date Recorded [place] Depression Scale Total 2 03/16/2024 The thought [...] No 03/16/2024 Does the household have a [facility] source of income? (Household - for ages [...] Progress Notes * Liv Montes De Oca [facility] - 09/02/2024 12:57 PM EST Patient [...] mg IV x 1 dose @ [facility]. Orders placed and routed to appropriate parties. Patient agreeable to intervention. Patient stated she does not have a history of asthma, severe allergic reaction or multiple allergies. Anemia Clinic will continue to follow. Thank you for allowing us to participate in the care of thispatient. Liv Mont[place] De Oca, PharmD, [facility] Clinical Pharmacist [facility] Anemia Clinic (P: [phone]) 09/02/2024 1:11 PM documented in this encounter Miscellaneous Notes * Addendum Note - Liv Montes De Oca RPh - 09/02/2024 1:18 PM ESTAddended by: LIV MONTES DE OCA on: 09/02/2024 01:18 PM Modules accepted: Orders documented in this encounter Plan of Treatment Upcoming Encounters Date Type Department Care Team (Late st Contact Info) Description 09/09/2024 10:45 AM EST Office Visit Gynecology/Obstetrics [facility] [address] [address] Ron Solis MD [address] [address] 09/16/2024 10:00 AM EST Pharmacy Pharmacy, [place] [address] [place] [address] Clinic, Anemia [address] [place] [address] 12/14/2024 4:20 PM EDT Office Visit Family Practice [facility] [address] [address] Cari Lindsey DO [address] [address] Health Maintenance Due Date Last Done Comments [...]
--- OUTSIDE RECORDS SUMMARY | 2024-09-16 14:43 | External Medical Summary | Summary of Care ---
Author Name Unknown Organization [facility] Address [address] [address] , [place] Care Team Providers Care Loan Operations Specialist Name Role Phone KarCari alvarado Primary Care Provider [phone] Reason for Visit * Reason Onset Date Comments Returning Call 08/30/2024 Encounter Details Date Type Department Care Team (Late st Contact Info) Description 08/30/2024 Telephone Pharmacy, [facility] [place] [address] [facility] [address] [address] Clinic, [facility] [address] [place] [address] Returning Call (/) Allergies Active Allergy Reactions Criticality Noted Date Comments Adhesive Tape Rash 05/28/2017 Influenza Virus Vac Live Quad 2021 Numbness Influenza Vac Split Quad 02/01/2021 documented as of this encounter (statuses as of 09/01/2024) Medications Vitamin D3 1.25 MG (69080 UT) Oral Capsule Take 1 Capsule by [...] as of this encounter (statuses as of 09/01/2024) Active Problems Problem Noted Date Diagnosed Date [...] as of this encounter (statuses as of 09/01/2024) Resolved Problems Problem Noted Date Diagnosed Date [...] as of this encounter (statuses as of 09/01/2024) Immunizations Name Administration Dates Next Due HEP [...] money to get more. Never true 03/16/2024 [place] Depression Scale Answer Date Recorded [place] Depression Scale Total 2 03/16/2024 The thought [...] No 03/16/2024 Are you (or your family) aintha eless or worried that you might be [...] encounter Miscellaneous Notes * Telephone Encounter - Jessie Lal CPhT - 08/30/2024 9:27 AM EST Caller's name: Shona [facility] call back number(OFFICE NUMBER FOR ): [phone] Reason for call: patient returning your call, thank you. Jessie Lal CPhT, LIO Desk Representative II [facility] ([facility]) (formerly Telepharmacy) [address] [facility] [phone] [address] ext [phone] documented in this encounter Plan of Treatment Upcoming Encounters Date Type Department Care Team (Late st Contact Info) Description 09/02/2024 8:30 AM EST Office Visit Gynecology/Obstetrics [facility] [address] [address] Ron Solis MD [address] [address] 09/02/2024 8:30 AM EST Pharmacy Pharmacy, [place] [address] [place] [address] Clinic, [facility] [address] [place] [address] 12/14/2024 4:20 PM EDT Office [facility] [address] [address] Cari Lindsey DO [address] [place] [address] Health Maintenance Due Date Last Done Comments [...] 19+ Years) Aged Out No longer eligib davon based on patient's age to complete this topic documented as of this encounter Medical Devices Not on filedocumented as of this encounter Care Teams Loan Operations Specialist Relationship Specialty Start Date End Date Cari Lindsey DO [address] [place] [address] PCP - General Family Medicine 05/01/16 documented as of this encounter
--- OUTSIDE RECORDS SUMMARY | 2024-09-16 14:43 | External Medical Summary | Summary of Care ---
Author Name Unknown Organization [facility] Address [address] [place] [address] Phone [phone] Care Team Providers Care Mechanical Engineering Intern Name Role Phone Unavailable Primary Care Provider Unavailabl e Reason for Visit * Reason Onset Date Comments Returning Call 09/02/2024 Encounter Details Date Type Department Care Team (Late st Contact Info) Description 09/02/2024 Telephone [facility], [facility] [address] [place] [address] [address] [phone] Clinic, Anemia [address] [place] [address] Returning Call Allergies Active Allergy Reactions Criticality Noted Date [...] Date INFORMATION 09/02/2024 Overview (09/02/2024): Nurse at [facility] -Radiology Antepartum anemia complicating 024 [...] money to get more. Never true 03/16/2024 Mallie Depression Scale Answer Date Recorded Mallie Depression Scale Total 2 03/16/2024 The thought [...] encounter Miscellaneous Notes * Telephone Encounter - Luisa Gomes CPhT - 09/02/2024 1:01 PM EST Caller's name: Shona [facility] call back number(OFFICE NUMBER FOR ): [phone] Reason for call: Pt is asking if you can send her a MYG message she said she's been waiting for thereturn call and just looked at her phone and noticed she missed the call but her phone didn't ring.She said she does receive other [facility] calls. Please advise and either return her call or send her a myg . Thank you, Luisa Gomes Line Helper [facility] 09/02/2024,1:02 PM documented in this encounter Plan of Treatment Upcoming Encounters Date Type Department Care Team (Late st Contact Info) Description 09/09/2024 10:45 AM EST Office Visit Gynecology/Obstetrics [facility] [address] [place] [address] Ron Solis MD [address] [place] [address] 09/16/2024 10:00 AM EST Pharmacy Pharmacy, [place] [address] [place] [address] Clinic, [facility] [address] [place] [address] 12/14/2024 4:20 PM EDT Office Visit Family Practice [facility] [address] [address] Cari Lindsey DO [address] [place] [address] Health Maintenance Due Date Last Done Comments [...]
--- OUTSIDE RECORDS SUMMARY | 2024-09-16 14:43 | External Medical Summary | Summary of Care ---
Author Name Unknown Organization [facility] Address [address] [place] [address] Phone [phone] Care Team Providers Care Front End Assistant Name Role Phone Unavailable Primary Care Provider Unavailabl e Reason for Visit * Reason Comments Return Visit Encounter Details Date Type Department Care Team (Late st Contact Info) Description 09/02/2024 8:30 AM EST Office Visit Gynecology/Obstetric s [facility] [address] [place] [address] Ron Solis MD [address] [address] Encounter for supervision of other normal , unspecified trimester* Allergies Active Allergy Reactions Criticality Noted Date Comments Adhesive Tape Rash 05/28/2017 Influenza Virus Vac Live Quad 2021 Numbness Influenza Vac Split Quad 02/01/2021 documented as of this encounter (statuses as of 09/02/2024) Medications Folic Acid 400 MCG Oral Tablet Take [...] as needed. 60 Capsule 5 4 Active Vitamin D3 1.25 MG (51724 UT) Oral Capsule Take 1 Capsule by mouth once a week. 4 09/02/19 25 Discontinu ed(Medicat ion List Clean Up) Iron-Vitamin C 65-125 MG Oral Tablet (Vitron C)Indications:Ant epartum anemia complicating Take 1 tablet by mouth twice a day. 60 Tablet 5 4 09/02/19 25 Discontinu ed(Medicat ion List Clean Up) documented as of this encounter (statuses as of 09/02/2024) Active Problems Problem Noted Date Diagnosed Date INFORMATION 09/02/2024 Overview (09/02/2024): Nurse at [facility] -Radiology Antepartum anemia complicating 024 Encounter for [...] money to get more. Never true 03/16/2024 [place] Depression Scale Answer Date Recorded [place] Depression Scale Total 2 03/16/2024 The thought [...] No 03/16/2024 Does the household have a [facility] source [facility] income? (Household - [...] Sign Reading Time Taken Comments Blood Pressure 100/60 09/02/2024 8:56 AM EST Pulse - - Temperature - - Respiratory Rate - - Oxygen Saturation - - Inhaled Oxygen Concentration - - Weight - - Height 160 cm (5' 3") 09/02/2024 8:56 AM EST Body Mass Index - - documented in this encounter Progress Notes * Ron Solis MD - 09/02/2024 9:18 AM EST Pt doing well No complaints GBs culx done * Joseline Rivera LPN - 09/02/2024 8:52 AM EST 36w0d Needs gbs documented in this encounter Plan of Treatment Upcoming Encounters Date Type Department Care Team (Late st Contact Info) Description 09/09/2024 10:45 AM EST Office Visit Gynecology/Obstetrics [facility] [address] [place] [address] Ron Solis MD [address] [place] [address] 12/14/2024 4:20 PM EDT Office Visit Family Practice [facility] [address] [place] [address] Cari Lindsey DO [address] [place] [address] Pending Results Name Type Priority Associated Diagnoses Date /Time GROUP B STREP CULTURE/PCR Lab Routine Encounter for supervision of other normal , unspecified trimester 09/02/2024 9:18 AM EST Scheduled Orders Name Type Priority Associated Diagnoses Orde r Schedule GROUP B STREP CULTURE/PCR Lab Routine Encounter for supervision of other normal , unspecified trimester Expected: 09/02/2024, Expires: 09/02/2025 Health Maintenance Due Date Last Done Comments [...] of other normal , unspecified trimester- Primary documented in this encounter
--- OUTSIDE RECORDS SUMMARY | 2024-09-16 14:44 | External Medical Summary | Summary of Care ---
Author Name Unknown Organization [facility] Address [address] [place] [address] Phone [phone] Care Team Providers Care On Site Soil Evaluator Name Role Phone Cari Lindsey DO Primary Care Provider [phone] Reason for Visit * Reason Onset Date Comments Returning Call 08/25/2024 Encounter Details Date Type Department Care Team (Late st Contact Info) Description 08/25/2024 Telephone Pharmacy, [place] [address] [place] [address] Clinic, [facility] [address] [place] [address] Returning Call Allergies Active Allergy Reactions Criticality Noted Date Comments Adhesive Tape Rash 05/28/2017 Influenza Virus Vac Live Quad 2021 Numbness Influenza Vac Split Quad 02/01/2021 documented as of this encounter (statuses as of 08/29/2024) Medications Vitamin D3 1.25 MG (71774 UT) Oral Capsule Take 1 Capsule by [...] money to get more. Never true 03/16/2024 [place] Depression Scale Answer Date Recorded [place] Depression Scale Total 2 03/16/2024 The thought [...] No 03/16/2024 Does the household have a [facility] source [facility] income? (Household - for ages [...] encounter Miscellaneous Notes * Telephone Encounter - Rukhsana Zuluaga welding equipment repairer - 08/26/2024 11:38 AM EST Caller's name: Shona [facility] call back number(OFFICE NUMBER FOR ): [phone] Reason for call: pt calling in returning a call from [facility] about her iron infusion. Please advise. Thank you, Rukhsana Zuluaga Computer Engineer [facility] ([facility]) 08/26/2024 11:38 AM * Telephone Encounter - Amberly Willis CPhT - 08/25/2024 10:31 AM EST Caller's name: Shona Preferred call back number(OFFICE NUMBER FOR ): [phone] Reason for call: Shona returning call to Anemia clinic. Thank you, Amberly Willis Computer Engineer [facility] ([facility]) 08/25/2024,10:32 AM documented in this encounter Plan of Treatment Upcoming Encounters Date Type Department Care Team (Late st Contact Info) Description 08/29/2024 4:00 PM EST Pharmacy Pharmacy, [address] [address] Clinic, [place] [address] [place] [address] 09/02/2024 8:30 AM EST Office Visit Gynecology/Obstetrics [facility] [address] [place] [address] Ron Solis MD [address] [place] [address] 12/14/2024 4:20 PM EDT Office Visit Family Practice [facility] [address] [address] Cari Lindsey DO [address] [place] [address] Health Maintenance Due Date Last Done Comments Hepatitis B Vaccine (1 of 3 - 19+ 3-dose series) 2009 COVID-19 Vaccine (2023- season) 2024 Influenza Vaccine (FLU shot) (#1) 2024 06/18/2020, 06/14/2019, 07/01/2018, Additional history exists Depression Screening 12/14/2024 12/15/2023 Pap Smear 01/31/2027 02/01/2024, 04, 08/17/2018, Additional history exists Cervical Cancer Screening [...] filedocumented as of this encounter Care Teams On Site Soil Evaluator Relationship Specialty Start Date End Date Cari Lindsey DO [address] [facility] [address] [place] [address] PCP - General Family Medicine 05/01/16 documented as of this encounter
--- OUTSIDE RECORDS SUMMARY | 2024-09-16 14:44 | External Medical Summary | Summary of Care ---
Author Name Unknown Organization [facility] Address [address] [place] [address] Phone [phone] Care Team Providers Care Preschool Paraprofessional Name Role Phone Cari Lindsey DO Primary Care Provider [phone] Reason for Visit * Reason Onset Date Comments Forms Request 08/26/2024 Encounter Details Date Type Department Care Team (Late st Contact Info) Description 08/26/2024 Telephone Gynecology/Obstetrics, [address] [place] [address] [facility]is MD [address] [facility] [address] Forms Request Allergies Active Allergy Reactions Criticality Noted Date Comments Adhesive Tape Rash 05/28/2017 Influenza Virus Vac Live Quad 2021 Numbness Influenza Vac Split Quad 02/01/2021 documented as of this encounter (statuses as of 08/29/2024) Medications Vitamin D3 1.25 MG (39970 UT) Oral Capsule Take 1 Capsule by [...] money to get more. Never true 03/16/2024 [place] Depression Scale Answer Date Recorded [place] Depression Scale Total 2 03/16/2024 The thought [...] No 03/16/2024 Does the household have a [facility] source of income? (Household - for [...] encounter Miscellaneous Notes * Telephone Encounter - Tiffany Briseno OSA - 08/29/2024 9:40 AM EST Forms completed. On Dr Solis's desk for signature. * Telephone Encounter - Jennifer Calle LPN - 08/26/2024 8:19 AM EST Tiffany, Can you please let us know status of FMLA paperwork? * Telephone Encounter - Kellie Sanchez, RN - 08/26/2024 8:07 AM EST Pt's spouse calling to check on status of FMLA paperwork. No documentation noted in pt chart. Please check on paperwork and call spouse with update. Russell's pt. documented in this encounter Plan of Treatment Upcoming Encounters Date Type Department Care Team (Late st Contact Info) Description 08/29/2024 4:00 PM EST Pharmacy Pharmacy, [place] [address] [place] [address] Clinic, [place] [address] [place] [address] 09/02/2024 8:30 AM EST Office Visit Gynecology/Obstetrics [facility] [address] [place] [address] Ron Solis MD [address] [place] [address] 12/14/2024 4:20 PM EDT Office Visit Family Practice [facility] [address] [address] Cari Lindsey DO [address] [place] [address] Health Maintenance Due Date Last Done Comments [...] filedocumented as of this encounter Care Teams Preschool Paraprofessional Relationship Specialty Start Date End Date Cari Lindsey DO [address] [address] PCP - General Family Medicine 05/01/16 documented as of this encounter
--- OUTSIDE RECORDS SUMMARY | 2024-09-16 14:44 | External Medical Summary | Summary of Care ---
Author Name Unknown Organization [facility] Address [address] [place] [address] Phone [phone] Care Team Providers Care Extrusion Bender Name Role Phone Cari Lindsey DO Primary Care Provider [phone] Encounter Details Date Type Department Care Team (Late st Contact Info) Description 08/26/2024 Telephone Gynecology/Obstetrics, [address] [place] [address] Ron Solis MD [address] [facility] [place] [address] Allergies Active Allergy Reactions Criticality Noted Date Comments Adhesive Tape Rash 05/28/2017 Influenza Virus Vac Live Quad 2021 Numbness Influenza Vac Split Quad 02/01/2021 documented as of this encounter (statuses as of 08/26/2024) Medications Vitamin D3 1.25 MG (36516 UT) Oral Capsule Take 1 Capsule by [...] as of this encounter (statuses as of 08/26/2024) Active Problems Problem Noted Date Diagnosed Date [...] as of this encounter (statuses as of 08/26/2024) Resolved Problems Problem Noted Date Diagnosed Date [...] as of this encounter (statuses as of 08/26/2024) Immunizations Name Administration Dates Next Due HEP [...] money to get more. Never true 03/16/2024 [place] Depression Scale Answer Date Recorded [place] Depression Scale Total 2 03/16/2024 The thought [...] encounter Miscellaneous Notes * Telephone Encounter - Jennifer Calle LPN - 08/26/2024 8:19 AM EST Tiffany, Can you please let us know status of FMLA paperwork? * Telephone Encounter - Kellie Sanchez RN - 08/26/2024 8:07 AM EST Pt's spouse calling to check on status of FMLA paperwork. No documentation noted in pt chart. Please check on paperwork and call spouse with update. Russell's pt. documented in this encounter Plan of Treatment Upcoming Encounters Date Type Department Care Team (Late st Contact Info) Description 09/02/2024 8:30 AM EST Office Visit Gynecology/Obstetrics [facility] [address] [place] [address] Ron Solis MD [address] [place] [address] 09/06/2024 4:00 PM EST Pharmacy Pharmacy, [place] [address] [place] [address] Clinic, [facility] [address] [place] [address] 12/14/2024 4:20 PM EDT Office Visit Family Practice [facility] [address] [address] Cari Lindsey DO [address] [place] [address] Health Maintenance Due Date Last Done Comments [...] filedocumented as of this encounter Care Teams Extrusion Bender Relationship Specialty Start Date End Date Cari Lindsey DO [address] [address] PCP - General Family Medicine 05/01/16 documented as of this encounter
--- OUTSIDE RECORDS SUMMARY | 2024-09-16 14:44 | External Medical Summary | Summary of Care ---
Author Name Unknown Organization [facility] Address [address] [place] [address] Phone [phone] Care Team Providers Care Licensed Sales Assistant Name Role Phone Cari Lindsey DO Primary Care Provider [phone] Reason for Referral * (Within 10 days (routine)) Specialty Diagnoses / Procedures Referred By Contac t Referred To Contact Anatomic Pathology Diagnoses Encounter for supervision of other normal , unspecified trimester Ron Solis MD [address] [place] [address] Phone: tel: fax: Referral ID Status Reason Start Date Expiration Date V isits Requested Visits Authorized Specialty Services Required Question Answer Referral Priority Within 10 days (routine) Where should this appointment be scheduled? [facility] Comments HGB 10.7 on 08/04/24, unable to tolerate PO iron. Reason for Visit * Reason Comments Return Visit Encounter Details Date Type Department Care Team (Late st Contact Info) Description 08/15/2024 3:00 PM EST Office Visit Gynecology/Obstetric [facility] [address] [address] Ron Solis MD [address] [place] [address] Encounter for supervision of other normal , unspecified trimester* Allergies Active Allergy Reactions Criticality Noted Date Comments Adhesive Tape Rash 05/28/2017 Influenza Virus Vac Live Quad 2021 Numbness Influenza Vac Split Quad 02/01/2021 documented as of this encounter (statuses as of 08/15/2024) Medications Vitamin D3 1.25 MG (28210 UT) Oral Capsule Take 1 Capsule by [...] as of this encounter (statuses as of 08/15/2024) Active Problems Problem Noted Date Diagnosed Date [...] as of this encounter (statuses as of 08/15/2024) Resolved Problems Problem Noted Date Diagnosed Date [...] as of this encounter (statuses as of 08/15/2024) Immunizations Name Administration Dates Next Due HEP [...] money to get more. Never true 03/16/2024 [place] Depression Scale Answer Date Recorded [place] Depression Scale Total 2 03/16/2024 The thought [...] Sign Reading Time Taken Comments Blood Pressure 92/64 08/15/2024 2:49 PM EST Pulse - - Temperature - - Respiratory Rate - - Oxygen Saturation - - Inhaled Oxygen Concentration - - Weight 62.6 kg (138 lb) 08/15/2024 2:49 PM EST Height 160 cm (5' 3") 08/15/2024 2:49 PM EST Body Mass Index 24.45 08/15/2024 2:49 PM EST documented in this encounter Progress Notes * Ron Solis MD - 08/15/2024 3:10 PM EST Pt doing well Last Hgb at [facility] was ; 10.7 Pt unable to tolerate P.O Iron Referral to Blood Management documented in this encounter Nursing Notes * Jaqueline Jamison LPN - 08/15/2024 2:56 PM EST 33w3d Unable to tolerate po iron- had recent labs at [facility] though we havent received results yet- thinks maybe hgb was 8. documented in this encounter Plan of Treatment Upcoming Encounters Date Type Department Care Team (Late st Contact Info) Description 09/02/2024 8:30 AM EST Office Visit Gynecology/Obstetrics [facility] [address] [address] Ron Solis MD [address] [address] 12/14/2024 4:20 PM EDT Office Visit Family Practice [facility] [address] [address] Cari Lindsey DO [address] [place] [address] Scheduled Referrals Name Type Priority Associated Diagnoses Orde r Schedule BLOOD MANAGEMENT REFERRAL Referral Within 10 days (routine) Encounter for supervision of other normal , unspecified trimester Ordered: 08/15/2024 Health Maintenance Due Date Last Done Comments [...] 5 Years) and At-Risk Patients (6 to 64 Years) Aged Out No longer eligible based on patient's age to complete this topic documented as of this encounter Medical Devices Not on filedocumented as of this encounter Visit Diagnoses Diagnosis Encounter for supervision of other normal , unspecified trimester- Primary documented in this encounter Care Teams Licensed Sales Assistant Relationship Specialty Start Date End Date Cari Lindsey DO [address] [address] PCP - General Family Medicine 05/01/16 documented as of this encounter
--- OUTSIDE RECORDS SUMMARY | 2024-09-16 14:44 | External Medical Summary | Summary of Care ---
Author Name Unknown Organization [facility] Address [address] [place] [address] Phone [phone] Care Team Providers Care Electron Beam Photo Mask Technician Name Role Phone Cari Lindsey DO Primary Care Provider [phone] Encounter Details Date Type Department Care Team (Late st Contact Info) Description 08/26/2024 Telephone Gynecology/Obstetrics, [address] [place] [address] Ron Solis MD [address] [facility] [place] [address] Allergies Active Allergy Reactions Criticality Noted Date Comments Adhesive Tape Rash 05/28/2017 Influenza Virus Vac Live Quad 2021 Numbness Influenza Vac Split Quad 02/01/2021 documented as of this encounter (statuses as of 08/26/2024) Medications Vitamin D3 1.25 MG (44370 UT) Oral Capsule Take 1 Capsule by [...] money to get more. Never true 03/16/2024 [place] Depression Scale Answer Date Recorded [place] Depression Scale Total 2 03/16/2024 The thought [...] 09/02/2024 8:30 AM EST Office Visit Gynecology/Obstetrics [facility] [address] [address] Ron Solis MD [address] [place] [address] 09/06/2024 4:00 PM EST Pharmacy Pharmacy, [place] [address] [place] [address] Clinic, [facility] [address] [place] [address] 12/14/2024 4:20 PM EDT Office Visit Family Practice [facility] [address] [address] Cari Lindsey DO [address] [place] [address] Health Maintenance Due Date Last Done Comments [...] filedocumented as of this encounter Care Teams Electron Beam Photo Mask Technician Relationship Specialty Start Date End Date Cari Lindsey DO [address] [address] PCP - General Family Medicine 05/01/16 documented as of this encounter
--- OUTSIDE RECORDS SUMMARY | 2024-09-16 14:44 | External Medical Summary | Summary of Care ---
Author Name Unknown Organization [facility] Address [address] [place] [address] Phone [phone] Care Team Providers Care Foreman Or Supervisor And Operator Name Role Phone Cari Lindsey DO Primary Care Provider [phone] Reason for Visit * Reason Comments Blood Management Program Encounter Details Date Type Department Care Team (Late st Contact Info) Description 08/16/2024 Documentation Patient Blood Management, [place] [address] [place] [address] Srikanth Bryant, RN Allergies Active Allergy Reactions Criticality Noted Date Comments Adhesive Tape Rash 05/28/2017 Influenza Virus Vac Live Quad 2021 Numbness Influenza Vac Split Quad 02/01/2021 documented as of this encounter (statuses as of 08/16/2024) Medications Vitamin D3 1.25 MG (54793 UT) Oral Capsule Take 1 Capsule by [...] mouth twice a day. 60 Tablet 5 Active Additional Information Patient not taking.Reported on 08/15/2024 documented as of this encounter (statuses as of 08/16/2024) Active Problems Problem Noted Date Diagnosed Date [...] as of this encounter (statuses as of 08/16/2024) Resolved Problems Problem Noted Date Diagnosed Date [...] as of this encounter (statuses as of 08/16/2024) Immunizations Name Administration Dates Next Due HEP [...] money to get more. Never true 03/16/2024 [place] Depression Scale Answer Date Recorded [place] Depression Scale Total 2 03/16/2024 The thought [...] as of this encounter Progress Notes * Srikanth Bryant RN - 08/16/2024 8:55 AM EST REFERRAL - Patient Blood Management Name: Shona Cortes REQUESTING SERVICE: Terence Talley OB REASON FOR REFERRAL: new evaluation outpatient, anemia in [facility]: 09/30/24 Anemia Evaluation: Latest Reference Range & Units 07/11/24 09:07 HGB 12.0 - 15.3 g/dL 10.3 (L) HCT 36.0 - 45.2 % 33.1 (L) Iron 33 - 151 ug/dL 37 Iron Binding Capacity 250 - 425 ug/dL 496 (H) Transferrin Saturation Percent 15 - 55 % 7 (L) Ferritin 13 - 150 ng/mL 7 (L) Immature Reticuloctye Fraction 2.5 - 20.6 % 11.6 Reticulocyte Hemoglobin 29.7 - 37.4 pg 28.1 (L) (L): Data is abnormally low (H): Data is abnormally high Current Patient Medications: Medications that may impair hemostasis: none Medications that may impair iron absorption: none Patient Refused Blood Transfusion? (e.g. Congregational): no Possible Contributing Factors: iron deficiency Treatment Recommendations: SEVERIANO per OB MTM guidelines 08/16 - Called patient to discuss recommendations. No answer, left voicemail for return call. myG sent 08/16 - Spoke with Shona, agreeable to IV iron at [facility]. Thank you for allowing Blood Management to participate in the care of this patient. documented in this encounter Plan of Treatment Upcoming Encounters Date Type Department Care Team (Late st Contact Info) Description 09/02/2024 8:30 AM EST Office Visit Gynecology/Obstetrics [facility] [address] [address] Ron Solis MD [address] [address] 12/14/2024 4:20 PM EDT Office Visit Family Practice [facility] [address] [address] Cari Lindsey DO [address] [address] Health Maintenance Due Date Last Done Comments [...] filedocumented as of this encounter Care Teams Foreman Or Supervisor And Operator Relationship Specialty Start Date End Date Cari Lindsey DO [address] [address] PCP - General Family Medicine 05/01/16 documented as of this encounter
--- OUTSIDE RECORDS SUMMARY | 2024-09-16 14:44 | External Medical Summary | Summary of Care ---
Author Name Unknown Organization [facility] Address [address] [place] [address] Phone [phone] Care Team Providers Care Sail Finisher Hand Name Role Phone Cari Lindsey DO Primary Care Provider [phone] Reason for Visit * Reason Onset Date Comments Anemia Follow-Up 08/23/2024 * Evaluate & Treat - Unlimited Visits (Within 10 days (routine)) - Authorized Specialty Diagnoses / Procedures Referred By Contac t Referred To Contact Pharmacist / Pharmacy Diagnoses ZITA (iron deficiency anemia) Bridget Waller CRNP [address] [place] [address] Phone: tel: fax: Referral ID Status Reason Start Date Expiration Date Visits Requested Visits Authorized [id number] Authorized Specialty Services Required 4 02/12/2025 99 99 Encounter Details Date Type Department Care Team (Late st Contact Info) Description 08/23/2024 4:00 PM [facility] Pharmacy Pharmacy, [place] [address] [place] [address] Clinic, An[facility] [address] [place] [address] Iron deficiency anemia, unspecified iron deficiency anemia type* Allergies Active Allergy Reactions Criticality Noted Date Comments Adhesive Tape Rash 05/28/2017 Influenza Virus Vac Live Quad 2021 Numbness Influenza Vac Split Quad 02/01/2021 documented as of this encounter (statuses as of 08/23/2024) Medications Vitamin D3 1.25 MG (54827 UT) Oral Capsule Take 1 Capsule by [...] as of this encounter (statuses as of 08/23/2024) Active Problems Problem Noted Date Diagnosed Date [...] as of this encounter (statuses as of 08/23/2024) Resolved Problems Problem Noted Date Diagnosed Date [...] as of this encounter (statuses as of 08/23/2024) Immunizations Name Administration Dates Next Due HEP [...] money to get more. Never true 03/16/2024 [place] Depression Scale Answer Date Recorded [place] Depression Scale Total 2 03/16/2024 The thought [...] as of this encounter Progress Notes * Odette Bales, [facility] - 08/23/2024 1:57 PM EST Patient Phone Numbers Patient referred by CLARITA Childs for evaluation of anemia by the Anemia Clinic. Called patient to introduce role/clinic and to review labs from 07/11. LMOVM. Hgb: 10.3 g/dL TSAT: 7 % Ferritin: 7 ng/mL GA: 34w4d Estimated Date of Delivery: 09/30/24 Hgb is below target range for the third trimester. Iron studies below target range. Per chart review, patient is taking Vitron C twice daily and appears to be tolerating it well. Oral iron replenishment inadequate or contraindicated. Patient qualifies for IV iron repletion. Tentative Plan: Iron dextran (INFeD) 1000 mg IV x 1 dose @ [facility]. Orders need to be placed and routed to appropriate parties if patient agreeable to intervention. Follow-up labs to be scheduled ~4-6 weeks after iron repletion completed if appropriate prior to delivery. Anemia Clinic will continue to follow. Thank you for allowing us to participate in the care of thispatient. Thanks, Odette Bales [facility] Clinical Pharmacist [facility] (P: [phone]) 08/23/2024 1:59 PM documented in this encounter Plan of Treatment Upcoming Encounters Date Type Department Care Team (Late st Contact Info) Description 09/02/2024 8:30 AM EST Office Visit Gynecology/Obstetrics [facility] [address] [address] Ron Solis MD [address] [address] 09/06/2024 4:00 PM EST Pharmacy Pharmacy, [place] [address] [address] [facility] [place] [address] Clinic, [facility] [address] [place] [address] 12/14/2024 4:20 PM EDT Office Visit Family Practice [facility] [address] [address] Cari Lindsey DO [address] [address] Scheduled Referrals Name Type Priority Associated Diagnoses [...] Primary documented in this encounter Care Teams Sail Finisher Hand Relationship Specialty Start Date End Date Cari Lindsey DO [address] [address] PCP - General Family Medicine 05/01/16 documented as of this encounter
[2024-09-16] MEDS: PENICILLIN GK 3 MU in DEXTROSE 5% 100 ML IV PRN (14:56)
--- NOTE | 2024-09-16 23:21 | Obstetrical Progress Note ---
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 VE: 2-3 cm/ 50%/ -3, posterior, soft, Buckley score still 4-5 Discussed above and options of either Oxytocin per protocol and continuous monitoring vs PG with intermittent monitoring and ambulation Patient desires to think about it Results & Data Vital Signs (Past 12 Hours) Vital Signs Temp Pulse Resp BP 09/16/24 21:31 71 94/50 L 09/16/24 19:15 36.5 C 09/16/24 18:58 82 107/66 09/16/24 16:28 36.7 C 70 16 104/59 L 09/16/24 13:55 36.7 C 73 16 104/59 L 09/16/24 11:19 85 105/59 L
--- NOTE | 2024-09-16 23:57 | Obstetrical Progress Note ---
Date of Service September 16, 2024 Assessment & Plan Admission and Anticipated Discharge Date Admission Date: September 16, 2024 Subjective Patient is reevaluated She preferred PO Cytotec but toco has been showing contractions q 3-5 min, patient started to feel them as well Discussed augmentation with low dose Oxytocin Patient desires Melatonin for sleep, Plans to get epidural when she will need it Continue to monitor closely, All questions were answered. Results & Data Vital Signs (Past 12 Hours) Vital Signs Temp Pulse Resp BP Pulse Ox 09/16/24 23:49 91 H 100 09/16/24 23:44 94 H 100 09/16/24 23:00 18 09/16/24 23:00 36.5 C 18 09/16/24 21:31 71 94/50 L 09/16/24 19:15 36.5 C 09/16/24 18:58 82 107/66 09/16/24 16:28 36.7 C 70 16 104/59 L 09/16/24 13:55 36.7 C 73 16 104/59 L
[2024-09-17] MEDS: OXYTOCIN 30 UNITS/NSS 30 UNITS/500 ML BAG IV PRN (00:10)
[2024-09-17] MEDS: MELATONIN 3 MG TAB PO PRN (02:13)
[2024-09-17] MEDS ORDERED: NALBUPHINE HCL INJ 10 MG/ML AMP IV PRN (02:30)
[2024-09-17] MEDS ORDERED: ROPIVACAINE 0.5% PF 5 MG/ML 20 ML VIAL EPI PRN (02:30)
[2024-09-17] MEDS ORDERED: ePHEDrine sulfate 50 MG/ML AMP IV PRN (02:30)
[2024-09-17] MEDS ORDERED: fentaNYL citrate PF 100 MCG/2 ML VIAL EPI PRN (02:30)
[2024-09-17] MEDS ORDERED: NALOXONE HCL 1 MG in SODIUM CHLORIDE 0.9% 1,000 ML IV PRN (02:30)
[2024-09-17] MEDS ORDERED: BUPIVACAINE 0.25% PF 30 ML VIAL EPI PRN (02:30)
[2024-09-17] MEDS ORDERED: LIDOCAINE 2% MPF LOCAL 5 ML VIAL EPI PRN (02:30)
[2024-09-17] MEDS ORDERED: SODIUM CHLORIDE 0.9% PF INJ 10 ML VIAL EPI PRN (02:30)
[2024-09-17] MEDS ORDERED: fentaNYL citrate PF 100 MCG/2 ML VIAL IV PRN (02:30)
[2024-09-17] MEDS ORDERED: diphenhydrAMINE 50 MG/ML VIAL IV PRN (02:30)
[2024-09-17] MEDS ORDERED: NALOXONE HCL 0.4 MG/1 ML VIAL/CARP IV PRN (02:30)
--- NOTE | 2024-09-17 02:30 | Anesthesiology Consultation ---
Date of Service September 17, 2024 Assessment & Plan Chart Review Chart Review: Acceptable Risk for Labor Epidural Consults Requested none History Height/Weight Height: 5 ft 4 in Weight: 62.596 kg Allergies Allergy/AdvReac Type Severity Reaction Status Date / Time Influenza Virus Vaccines AdvReac Severe neurologic Verified 06/03/24 08:28 symptoms such as numbness Medications Home Medications Medication Instructions Recorded Confirmed Last Taken OTC PO 06/03/24 Unknown Active Medications Generic Name Dose Route Start Last Admin Trade Name Freq PRN Reason Stop Dose Admin Penicillin G Potassium 3 mu/ 106 mls @ 100 mls/hr 09/16/24 13:34 09/17/24 02:08 Dextrose IV 09/26/24 13:33 100 mls/hr Q4H PRN Administration GBS(+) Until Delivery Sodium Chloride 1,000 mls @ 80 mls/hr 09/16/24 11:15 09/17/24 02:16 Nss IV 09/17/24 11:14 999 mls/hr .[id number] FRANCISCO Administration Oxytocin 30 units in 500 mls @ 3 mls/hr 09/16/24 23:55 09/17/24 02:10 Pitocin 30 Units/Nss IV 09/18/24 23:54 0.24 units/hr .Q24H PRN 4 mls/hr Labor Induction/Augmentation Titration Protocol 0.18 UNITS/HR Melatonin 3 mg 09/16/24 23:54 09/17/24 02:13 Melatonin 3 Mg Tab PO 10/16/24 23:53 3 mg HS PRN Administration Sleep Past Family History Family History Family/Other Breast cancer Grandfather (Maternal) Heart disease Grandfather (Paternal) Heart disease Other No pertinent family history Past Surgical History Surgical History History of dental surgery No significant past surgical history Social History Smoking Status: Never smoker Do You Dip or Chew Tobacco: No Hx Alcohol Use: No Hx Substance Use: No Physical Exam Vital Signs Last Vital Signs Temp 36.5 C 09/16/24 23:00 Pulse 94 H 09/17/24 02:24 Resp 18 09/16/24 23:00 BP 102/55 L 09/17/24 02:06 Pulse Ox 99 09/17/24 02:24 Testing Laboratory Results 09/16/24 10:49 09/16/24 10:49
[2024-09-17] MEDS: fentANYL 2 MCG/ML BUPIVacaine 0.125%-NSS 100ML BAG EPI PRN (02:56)
[2024-09-17] MEDS: LIDOCAINE 2%/EPINEPHRINE 1:200,000 20 ML PF EPI STA (02:57)
--- NOTE | 2024-09-17 04:33 | Obstetrical Progress Note ---
Date of Service September 17, 2024 Assessment & Plan Admission and Anticipated Discharge Date Admission Date: September 16, 2024 Subjective Patient is comfortable now, received epidural for pain. FHR had been categ I [place] ctxs q 2-5 min Received 4 doses of IV PCN VE: 3/ 70%/ -1, central, AROM'ed clear fluid Continue to monitor closely Results & Data Vital Signs (Past 12 Hours) Vital Signs Temp Pulse Resp BP Pulse Ox 09/17/24 04:26 82 100 09/17/24 04:24 73 94/54 L 09/17/24 04:21 85 100 09/17/24 04:16 79 100 09/17/24 04:11 75 98 09/17/24 04:09 74 84/56 L 09/17/24 04:06 71 98 09/17/24 04:01 79 100 09/17/24 03:56 79 100 09/17/24 03:55 75 87/56 L 09/17/24 03:51 75 99 09/17/24 03:46 76 100 09/17/24 03:41 76 100 09/17/24 03:40 75 95/58 L 09/17/24 03:36 76 100 09/17/24 03:31 81 100 09/17/24 03:26 71 98 09/17/24 03:25 79 93/54 L 09/17/24 03:21 71 98 09/17/24 03:16 76 98 09/17/24 03:11 77 99 09/17/24 03:08 80 94/52 L 09/17/24 03:06 86 105/60 99 09/17/24 03:04 83 101/59 L 09/17/24 03:02 87 104/62 09/17/24 03:01 84 98 09/17/24 03:00 36.4 C L 88 18 105/63 09/17/24 02:58 83 106/63 09/17/24 02:56 85 107/62 100 09/17/24 02:55 95 H 113/67 09/17/24 02:51 89 100 09/17/24 02:46 107 H 100 09/17/24 02:41 104 H 100 09/17/24 02:36 89 100 09/17/24 02:35 89 105/67 09/17/24 02:32 93 H 120/69 09/17/24 02:31 94 H 100 09/17/24 02:24 94 H 99 09/17/24 02:19 84 98 09/17/24 02:14 85 99 09/17/24 02:09 81 99 09/17/24 02:06 81 102/55 L 09/17/24 02:04 83 99 09/17/24 01:59 75 98 09/17/24 01:54 85 99 09/17/24 01:49 75 98 09/17/24 01:44 79 99 09/17/24 01:40 78 103/59 L 09/17/24 01:39 82 99 09/17/24 01:29 82 99 09/17/24 01:24 81 98 09/17/24 01:19 86 99 09/17/24 01:14 88 99 09/17/24 01:09 83 98 09/17/24 01:06 75 90/56 L 09/17/24 01:04 88 99 09/17/24 00:59 82 99 09/17/24 00:54 80 98 09/17/24 00:49 89 98 09/17/24 00:44 80 98 09/17/24 00:39 88 98 09/17/24 00:37 79 92/50 L 09/17/24 00:34 90 98 09/17/24 00:29 84 97 09/17/24 00:24 86 98 09/17/24 00:19 84 98 09/17/24 00:14 82 98 09/17/24 00:09 87 98 09/17/24 00:05 85 106/61 09/17/24 00:04 83 99 09/16/24 23:49 91 H 100 09/16/24 23:44 94 H 100 09/16/24 23:00 18 09/16/24 23:00 36.5 C 18 09/16/24 21:31 71 94/50 L 09/16/24 19:15 36.5 C 09/16/24 18:58 82 107/66
[2024-09-17] MEDS: LIDOCAINE 2%/EPINEPHRINE 1:200,000 20 ML PF ONE (04:48)
[2024-09-17] MEDS: ePHEDrine sulfate 50 MG/ML AMP ONE (04:48)
[2024-09-17] MEDS: fentANYL 2 MCG/ML BUPIVacaine 0.125%-NSS 100ML BAG ONE (04:48)
[2024-09-17] MEDS: BUPIVACAINE 0.25% PF 30 ML VIAL ONE (04:48)
[2024-09-17] MEDS: fentaNYL citrate PF 100 MCG/2 ML VIAL ONE (04:48)
[2024-09-17] MEDS: SODIUM CHLORIDE 0.9% PF INJ 10 ML VIAL ONE (04:50)
[2024-09-17] MEDS: BUPIVACAINE 0.25% PF 30 ML VIAL EPI STA (04:51)
[2024-09-17] MEDS: SODIUM CHLORIDE 0.9% PF INJ 10 ML VIAL EPI STA (04:51)
[2024-09-17] MEDS: fentaNYL citrate PF 100 MCG/2 ML VIAL EPI STA (04:51)
[2024-09-17] MEDS ORDERED: BENZOCAINE 20% SPRY 85 APPLN/85 GM CAN EXT PRN (10:30)
[2024-09-17] MEDS ORDERED: OXYTOCIN 30 UNITS/NSS 30 UNITS/500 ML BAG IV PRN (10:30)
[2024-09-17] MEDS ORDERED: ACETAMINOPHEN 325 MG TAB PO PRN (10:30)
[2024-09-17] MEDS ORDERED: HYDROCORTISONE ACETATE 25 MG SUPP PR PRN (10:30)
--- NOTE | 2024-09-17 10:35 | Delivery Summary ---
Vaginal Delivery Summary Date of Service September 17, 2024 Vaginal Delivery Summary Called to see patient who had a precipitous baby in bed. Baby was seen and delivered by nurse present in the room. Live male with Apgars 8/9 weight pending. When I arrived patient and baby were bonding and stable. I delivered the placenta which was examined and found to be intact. Small first degree tear was repaired with 3/0 Vicryl suture. Final sponge instrument count and needle count are correct. Mom and baby stable. QBL 38 ml.
[2024-09-17] MEDS: IBUPROFEN 600 MG TAB PO PRN (11:30)
--- NOTE | 2024-09-17 12:15 | Anesthesia Procedure Note ---
Date of Service September 17, 2024 Anesthesia Post Epidural Note Vital Signs Vital Signs: Temp Pulse Resp BP Pulse Ox 36.3 C L 78 14 101/58 L 99 09/17/24 09:16 09/17/24 12:00 09/17/24 11:00 09/17/24 12:00 09/17/24 10:16 Pain Intensity Abdomen: Pain Intensity: 0 Medial Back: Pain Intensity: 2 Notes Mental Status: alert / awake / arousable and participated in evaluation Nausea / Vomiting: adequately controlled Pain: adequately controlled Airway Patency, RR, SpO2: stable & adequate BP & HR: stable & adequate Hydration State: stable & adequate Neuraxial Anesthesia: was administered and sensory block is resolving Anesthetic Complications: no major complications apparent Epidural: Removed without complications and With tip intact
[2024-09-17] MEDS: DOCUSATE SODIUM 100 MG CAP PO SCH (21:09)
[2024-09-17] MEDS: DIPHTHER/TETAN/PERTUS Vaccine (Tdap, Adol/Adult) 0.5mL IM ONE (21:10)
[2024-09-18 07:26] VITALS: BP 106/69; PULSE 81; RESP 16; TEMP 97.7; O2SAT 97
[2024-09-18] MEDS: FERROUS SULFATE 325 MG TAB PO SCH (08:35)
[2024-09-18] MEDS: PRENATAL VITAMIN 1 TAB PO SCH (08:35)
[2024-09-18] MEDS ORDERED: [UNRECOGNIZED DRUG - OTHER] PO SCH (09:00)
[2024-09-18 09:10] LABS: Hematocrit (blood only) 27.1 % (37.0-47.0); Hemoglobin 8.6 g/dl (12.0-16.0); Mean Corpuscular Hgb Conc 31.7 g/dL (32.0-36.0); Mean Corpuscular Volume 81.9 fL (80.0-100.0); Platelet Count 265 K/uL (130-400); RDW Coefficient of Variation 13.2 % (11.5-14.5); RDW Standard Deviation 39.7 fL (36.4-46.3); Red Blood Count 3.31 M/uL (4.20-5.40); White Blood Count 10.66 K/ul (4.8-10.8)
--- NOTE | 2024-09-18 09:27 | Obstetrical Progress Note ---
Date of Service September 18, 2024 Subjective Ambulation: ambulating normally Voiding: no voiding problems Passing Gas:: Yes Diet Tolerance:: regular diet Lochia:: Small Feeding Type:: breast feeding Current Pain Level(1-10): 0 doing well. plans for d/c today. Physical Exam Constitutional WD/WN, vitals as above Gastrointestinal (Abdomen) Inspection/Auscultation: abdomen normal to inspection abdomen soft and non-tender. fudus firm below U. Musculoskeletal Extremities: extremities normal to inspection Skin no rashes, warm and dry Neurologic patellar DTR's 2+ bilat, sensation intact Psychiatric A+Ox3, euthymic affect Results & Data Vital Signs (Past 12 Hours) Vital Signs Temp Pulse Resp BP Pulse Ox O2 Del Method 09/18/24 07:07 36.5 C 81 16 106/69 97 Room Air 09/18/24 04:00 36.8 C 89 18 84/55 L 98 Room Air 09/18/24 00:00 36.4 C L 96 H 16 94/53 L 97 Room Air Laboratory Results 09/16/24 09/18/24 10:49 08:51 WBC 10.24 10.66 RBC 3.76 L 3.31 L Hgb 10.0 L 8.6 L Hct 30.4 L 27.1 L MCV 80.9 81.9 MCH 26.6 26.0 MCHC 32.9 31.7 L RDW Std Deviation 38.3 39.7 RDW Coeff of Carlton 13.2 13.2 Plt Count 297 265 MPV 9.9 10.0 Sodium 136 Potassium 3.8 Chloride 107 Carbon Dioxide 22 Anion Gap 7 BUN 5 L Creatinine 0.50 L Est Cr Clr Drug Dosing 136.9 eGFR 126.14 BUN/Creatinine Ratio 10.0 Glucose 88 Calcium 8.8 Total Bilirubin 0.3 AST 12 L ALT 8 Alkaline Phosphatase 100 Total Protein 6.3 Albumin 3.4 Globulin 2.9 Albumin/Globulin Ratio 1.2 Treponema pallidum Ab Negative
[2024-09-18] MEDS ORDERED: bisacodyL 5 MG TABEC PO SCH (20:00)
[2024-09-19] MEDS ORDERED: bisacodyL 10 MG SUPP PR PRN (08:00)
== END 2024-09-18 13:00 | disposition home or self-care (01) | DRG 806 ==
LOC: 4S1 10:02 → 4E2 09-17 14:05